=== PATIENT | male | born 1950 | race Caucasian/White ===

== ENCOUNTER 2019-06-09 16:27 | Inpatient (IN) ==
--- NOTE | 2019-06-09 18:09 | PROVIDER DOCUMENTATION ---
HPI-General Adult - General Chief Complaint: Abdominal Pain Stated Complaint: STOMACH-CANT EAT/SLEEP Time Seen by Provider: 06/09/19 17:51 Source: patient Allergies/Adverse Reactions: Patient Allergies Allergy/AdvReac Type Severity Reaction Status Date / Time No Known Allergies Allergy Verified 06/09/19 19:20 - History of Present Illness -Gen Adult Nature of Presenting Problems: 68yo male presents with CC of abdominal pain. The patient reports that this has been going on for about 4 weeks. The patient has seen his PCP for this and obtained some labs, but these are not back yet. The patient denies any fevers. The patient denies blood in vomit or diarrhea. The patient does report hx of dark stool 6wks ago. The patient denies any current bloody stool. The patient does radiate to the right flank. The patient reports last BM yesterday evening. The pt has not had abdominal surgery previously. No recent travel, hospitalization, surgery, or hx of blood clots. Pt is in no acute distress and is non-toxic appearing. Location of Pain/Injury: reports: abdomen Pain Radiation: reports: flank (R) Quality of Pain: reports: aching Severity: reports: mild Onset/Duration: reports: other (4 weeks) Timing: reports: still present Modifying Factors: improves with: eating (worsens), movement (improves) Associated Symptoms: reports: back/neck pain, constipation, heartburn, loss of appetite, nausea. denies: chest pain, vomiting Review of Systems - Adult - REVIEW OF SYSTEMS - ADULT Constitutional: reports: no symptoms reported. denies: fever Eyes: reports: no symptoms reported. denies: eye pain Ears, Nose, Mouth & Throat: reports: other (ear fullness) Cardiovascular: reports: no symptoms reported. denies: chest pain Respiratory: reports: shortness of breath Gastrointestinal: reports: abdominal pain, constipation, diarrhea, nausea, poor appetite. denies: hematemesis, rectal bleeding, vomiting Genitourinary: reports: dysuria Musculoskeletal: reports: back pain Integumentary: reports: no symptoms reported Neurological: reports: no symptoms reported. denies: headache/migraines Psychiatric: reports: no symptoms reported. denies: alcohol/drug dependence Endocrine: reports: no symptoms reported Hematologic/Lymphatic: reports: no symptoms reported, other (no bleeding) Allergic/Immunologic: reports: no symptoms reported, other (no swelling) Past History - Adult - PAST MEDICAL HISTORY-ADULT Review of Records: reports: Old Records Reviewed Cardiovascular: reports: denies history Respiratory: reports: denies history Gastrointestinal: reports: other (ulcers) Musculoskeletal: reports: chronic pain (neck) - PRIOR SURGERIES/PROCEDURES Surgical/Procedure History: reports: none (no abdominal) - FAMILY HISTORY Family History: other (CA) - SOCIAL HISTORY Smoking: non-smoker Substance Use: none/never Alcohol Use Frequency: never Physical Exam-General - PHYSICAL EXAM-ADULT Initial Vital Signs Reviewed: Yes - CONSTITUTIONAL General Appearance: appears well, alert, no apparent distress - EYES Eyes: negative: conjuctival exudate, photophobia, scleral icterus - HEAD, EARS, NOSE, MOUTH & THROAT HENMT: normocephalic/atraumatic, moist mucous membranes, other (white exudate noted on the tongue). negative: hearing deficit - NECK Neck: non-tender - RESPIRATORY Respiratory: lungs clear, normal breath sounds, no respiratory distress. negative: crackles, stridor, wheezing - CARDIOVASCULAR Cardiovascular: regular rate, rhythm, no edema - GASTROINTESTINAL (ABDOMEN) Abdominal Exam: soft, guarding, tenderness (RUQ and epigastric). negative: rebound - MUSCULOSKELETAL Back Exam: CVA tenderness (right) Extremity: non-tender, normal inspection (LE) - SKIN Integumentary: normal color, warm/dry - NEUROLOGIC Neurologic: grossly normal - PSYCHIATRIC Psych/Mental Status: normal mood/affect, normal thought content, normal thought process Progress - PLAN OF CARE/RESULTS Progress/Plan/Lab Results: Vital Signs - 8 hr 06/09/19 17:09 Temperature 98.0 F Pulse Rate 90 Respiratory Rate 20 Blood Pressure 135/93 O2 Sat by Pulse Oximetry 97 Result Diagrams: 06/09/19 19:31 06/09/19 19:31 - REASSESSMENT Reassessment #1 Status: other (Discussed case with the radiology team who reported metastatic cancer noted on the CT abd/pelvis. Discussed this with the family and will plan for admission with further work up. Discussed with the hospitalist team who has accepted the patient.) - EKG 1 Time of EKG reading by physician:: 19:53 EKG Read and Signed by:: Jass Guerrero EKG Interpretation (*Must complete 3 of following elements*): Normal Rate: 82 Rhythm: sinus Rector: normal QRS: normal [place] Interval: normal ST Wave: non-specific ST changes Comments: No injury current noted. Departure - Departure Date of Disposition Decision: 06/09/19 Time of Disposition Decision: 22:23 DIAGNOSIS: Metastatic cancer, Hypercalcemia Disposition: ADMITTED INPATIENT 09 Certified Medical Emergency: Emergent Condition: Serious Referrals and Follow-Ups: Rafy Velazquez MD [Primary Care Provider] - - Critical Care Note This patient required my direct & personal management of CC.: No Attestation - Physician/ GERALD Attestation Patient care was provided by Advanced Practice Provider:: No The physician spent face to face time with patient:: Yes Advanced Practice Provider documentation review:: Supervising physician onsite and consulted in the evaluation and care of this patient. The physician did have a face to face encounter with the patient. - HEART Score HEART Score: History: Slightly Suspicious HEART Score: ECG: Non-Specific Repolarization Disturbance/LBBB/PM HEART Score: Age: > or = 65 Years HEART Score: Risk Factors for Atherosclerotic Disease: 1 or 2 Risk Factors HEART Score: Troponin: < or = Normal Limit Total HEART Score:: 4
--- NOTE | 2019-06-09 18:27 | Diag Imaging Result Doc PS360 ---
CHEST-2 VIEWS - 06/09/2019 INDICATION: Shortness of breath COMPARISON: None FINDINGS: There is some linear atelectasis or scarring in the right lower lobe. No other infiltrates. Small calcified granuloma in the right upper lobe. Heart size and pulmonary vascular clarity is normal. No pneumothorax or pleural effusion. IMPRESSION: Moderate, linear atelectasis or scarring in the right lower lobe. Electronically signed by Gato Raman 06/09/2019 6:24 PM
[2019-06-09] MEDS ORDERED: G.I. COCKTAIL PO ONE (19:23)
[2019-06-09 19:45] LABS: URINE SOURCE CLEAN CATCH
[2019-06-09 19:51] LABS: BASO# 0.02 X1000 (0.0-0.2); BASO% 0.2 % (0.0-0.8); EOS# 0.06 X1000 (0.0-0.7); EOS% 0.7 % (0.0-10.0); HEMATOCRIT 43.8 % (42.0-52.0); HEMOGLOBIN 15.3 g/dL (14.0-18.0); IMM GRAN# 0.02 X1000 (0.0-0.04); IMM GRAN% 0.2 % (0.0-0.5); LYMPH# 1.45 X1000 (1.2-3.4); LYMPH% 16.1 % (20.5-51.1); MCHC 34.9 g/dL (33-37); MCV 88.8 FL (81-99); MONO# 0.97 X1000 (0.11-0.59); MONO% 10.8 % (1.7-9.3); MPV 10.3 FL (7.4-10.4); NEUT# 6.46 X1000 (1.4-6.5); PLT 220 X1000 (130-400); RBC 4.93 XMIL (4.7-6.1); RDW 12.3 % (11.5-14.5); WBC 8.98 X1000 (4.8-10.8)
[2019-06-09] MEDS ORDERED: ZOFRAN IV ONE (19:52)
--- NOTE | 2019-06-09 20:00 | EKG Report ---
Test Performed on : 06/09/2019 7:51:37 PM Test Reason : shortness of breath Blood Pressure : / mmHG Vent. Rate : 082 BPM Atrial Rate : 082 BPM P-R Int : 146 ms QRS Dur : 082 ms QT Int : 362 ms P-R-T Axes : 057 051 -15 degrees QTc Int : 422 ms Normal sinus rhythm. Nonspecific ST and T wave abnormality Abnormal ECG No previous ECGs available Unconfirmed Result
[2019-06-09 20:13] LABS: BILIRUBIN URINE NEGATIVE (NEGATIVE); BLOOD URINE NEGATIVE (NEGATIVE); COLOR YELLOW; GLUCOSE URINE NEGATIVE (NEGATIVE); KETONE URINE 20 mg/dL (NEGATIVE); LEUKOCYTES URINE NEGATIVE (NEGATIVE); NITRITE URINE NEGATIVE (NEGATIVE); PH URINE 5.5; PROTEIN URINE 30 mg/dL (NEGATIVE); SP GRAVITY URINE 1.024; TURBIDITY URINE CLEAR (CLEAR); UROBILINOGEN URINE NORMAL (NORMAL)
[2019-06-09 20:14] LABS: AGAP 13; ALB/GLOB RATIO 1.2; ALBUMIN 4.2 g/dL (3.5-5.0); ALKALINE PHOSPHATASE 105 U/L (32-122); AMYLASE 38 U/L (20-200); BUN 18 mg/dL (8-22); CALCIUM 12.1 mg/dL (8.8-10.2); CHLORIDE 96 mmol/L (98-107); COSMO 274; ESTIMATED GFR > 60; GLUCOSE 104 mg/dL (70-104); GOT 84 U/L (10-34); GPT 35 U/L (10-44); LIPASE 66 U/L (13-60); POTASSIUM 4.5 mmol/L (3.5-5.1); SODIUM 136 mmol/L (136-145); TCO2 27 mmol/L (25-35); TOTAL BILIRUBIN 1.02 mg/dL (0.20-1.00); TOTAL PROTEIN 7.7 g/dL (6.3-8.3)
[2019-06-09] MEDS ORDERED: NS 1,000 ML IV ONE ×2 (20:15→22:24)
[2019-06-09 20:27] LABS: UR EPITHELIAL CELLS <10 /HPF (<10); URINE BACTERIA NEGATIVE /HPF; URINE RBC <10 /HPF (<10); URINE WBC <10 /HPF (<10)
[2019-06-09 20:42] LABS: URINE CASTS NONE SEEN; URINE CRYSTALS NONE SEEN; URINE YEAST NONE SEEN
--- NOTE | 2019-06-09 22:00 | Diag Imaging Result Doc PS360 ---
CT ABD/PELVIS W/IV CONT ONLY - 06/09/2019 INDICATION: Abdominal Pain COMPARISON: None FINDINGS: There is a large heterogeneous mass in the right lobe of the liver. This is multifocal and measures about 13 x 8 cm. There is periportal adenopathy. There is an enhancing nodule of the right adrenal gland measuring 3.7 x 2.5 cm. Other abdominal organs appear normal. No bowel obstruction or inflammation. Moderate to severe diverticulosis of the colon. There is trace pelvic free fluid. Urinary bladder, prostate, and rectum. There are several scattered pulmonary nodules throughout the lungs. These are all small measuring less than a centimeter. Heart size is normal. There are moderate degenerative changes of the spine. No acute or suspicious bony lesion. IMPRESSION: Widely metastatic cancer of unknown origin. This report was discussed with Dr. Gooden on 06/09/2019 at 9:50 PM and was readback. This exam was performed using automated exposure control, adjustment of mA or kV according to patient size, and/or use of iterative reconstruction technique Electronically signed by Gato Raman 06/09/2019 9:58 PM
[2019-06-09] MEDS ORDERED: MORPHINE IV ONE (22:58)
[2019-06-09] MEDS ORDERED: SODIUM CHLORIDE 0.9% INJ ONE (23:09)
[2019-06-09] MEDS ORDERED: PROTONIX IV ONE (23:09)
[2019-06-10] MEDS ORDERED: MIACALCIN SUBQ SCH (00:15)
[2019-06-10] MEDS ORDERED: SODIUM CHLORIDE 0.9% INJ ONE (00:15)
[2019-06-10] MEDS ORDERED: ZOFRAN IV PRN (00:15)
--- NOTE | 2019-06-10 00:23 | HISTORY AND PHYSICAL ---
REASON FOR ADMISSION: A 3 to 4 week history of abdominal pain. HISTORY OF PRESENT ILLNESS: Mr. Edmundo Espino is a 68-year-old male with past medical history of hypertension, hyperlipidemia, who reports that for the last 3 to 4 weeks he has been having epigastric pain, occasionally radiating down to his umbilicus. Describes the pain as an achy and tight kind of pain. Says the pain is worse whenever he eats and earlier, about 3 4 weeks ago, he notes he had a few days of dark stools. He also reports a 28 pounds weight loss in the last 2 months. He says he is having nausea and has vomited a few times and his appetite has progressively declined . When he vomited, he denied seeing any blood or coffee grounds. He denies any abdominal distention. He also reports intermittent constipation. No hematochezia or melanotic stools. He denies any fever, chills, any generalized pruritus. No change in his urinary output, although he does admit he has a longstanding history of urinary hesitancy and occasional straining. No bleeding from any orifice. Over the last 1 week, he has sought care in outpatient clinics and has been given Carafate and Pepcid, which mildly relieves his symptoms. The patient denies any cardiorespiratory complaints, except for today when he said after moderate exertion he felt very tired but denied any chest pain with this. Also, reports last 3 days of lightheadedness and generalized weakness. REVIEW OF SYSTEMS: Twelve-system review was done, positive findings per HPI. No allergies, no rash. No focal neurological symptoms. ALLERGIES: No known allergies. HOME MEDICATIONS: Have not been reconciled but I did notice that he some bottles that contained Carafate, Pepcid, atenolol, aspirin and atorvastatin. FAMILY HISTORY: His sister from breast cancer. Dad has thyroid cancer. Heart disease is also positive in first-degree relatives. PAST MEDICAL HISTORY: Hypertension, hyperlipidemia. SOCIAL HISTORY: He stopped smoking 30 years ago. No alcohol, drug use. He is , lives with . SURGICAL HISTORY: He has only had back surgery. LABORATORY DATA: White count 9000, hemoglobin and hematocrit 15 and 43, platelets 220,000. BUN 18, creatinine 1.0. Calcium 12.1, total bilirubin is 1, lipase 66. Intact PTH and vitamin B levels are normal. Alkaline phosphatase is also normal. Urinalysis has 30 protein, ketones positive. Ionized calcium was 1.6. CT of the abdomen and pelvis shows a 13 x 8 cm multifocal mass in the right lobe of the liver. There is periportal adenopathy. There is also enhancement of a nodule on the right adrenal gland measuring 3.7 x 2.5 cm, with several scattered pulmonary nodules throughout the lungs. Chest film does show an acute cardiopulmonary process. PHYSICAL EXAMINATION: VITAL SIGNS: Blood pressure is 160/93, heart rate is 87, respiratory rate 17, temperature is 98 degrees. GENERAL: He is a middle-aged man who is alert and oriented to person and time with flat affect. Normal mood. He is oriented to person, place, time. HEENT: Head is normocephalic, atraumatic. Eyes: GEOVANNI, EOMI. He is anicteric, no pale. ENT is grossly normal. NECK: Supple. No JVD or carotid bruit. No thyromegaly. CHEST: Clear when auscultated. Good air entry both lung avila. CARDIOVASCULAR: First and sounds heart sounds heard. No gallops, rubs regular. ABDOMEN: Full is full, soft with tenderness confined exclusively to the left lower quadrant area, but no peritoneal signs. Bowel sounds are normal. Rectal sounds [id number]. EXTREMITIES: He has good distal pulse volumes, regular, symmetrical. No edema, clubbing or cyanosis. NEUROLOGIC: No gross focal deficits. SKIN: Intact, no breakdown or erythema. MUSCULOSKELETAL: Grossly normal. LYMPHATIC: Patient has no adenopathy in the cervical, supraclavicular and axillary chains. ASSESSMENT: Metastatic cancer of unknown primary, strongly suspect gastrointestinal or mostly intestinal primary. PLAN: 1. Will consult GI for endoscopic evaluation since the patient's symptoms are strongly suggestive of a gastrointestinal etiology, based on history of melena, epigastric pain affected by meals and localized left lower quadrant tenderness. Tumor markers ordered. Consult Oncology to see patient. The patient has not had a colonoscopy done before, but if there are no findings on endoscopy, alternatively, patient can have a liver biopsy. 2. Hypercalcemia, probably secondary to malignancy. Order a PTH related peptide, which I suspect may be playing a role in the pathogenesis of hypercalcemia here. We will start him on aggressive crystalloid resuscitation to encourage excretion of calcium. Put patient on calcitonin. We will defer to oncologist as to their choice of bisphosphonates, if needed. 3. Hypertension. Resume patient's home medications once available. cc: MD Rafy Dupont MD MTDD
[2019-06-10] MEDS: LOVENOX SUBQ SCH (01:01)
[2019-06-10] MEDS: NS 1,000 ML IV SCH ×3 (01:02→17:45)
[2019-06-10] MEDS: MORPHINE IV PRN ×4 (01:03→20:09)
[2019-06-10 07:43] LABS: BASO# 0.01 X1000 (0.0-0.2); BASO% 0.1 % (0.0-0.8); EOS# 0.05 X1000 (0.0-0.7); EOS% 0.7 % (0.0-10.0); HEMATOCRIT 39.8 % (42.0-52.0); HEMOGLOBIN 13.6 g/dL (14.0-18.0); LYMPH# 1.04 X1000 (1.2-3.4); LYMPH% 15.4 % (20.5-51.1); MCH 30.8 PG (27-31); MCHC 34.2 g/dL (33-37); MCV 90.2 FL (81-99); MONO# 0.84 X1000 (0.11-0.59); MONO% 12.5 % (1.7-9.3); MPV 10.3 FL (7.4-10.4); NEUT% 71.3 % (42.2-75.2); PLT 186 X1000 (130-400); RBC 4.41 XMIL (4.7-6.1); RDW 12.2 % (11.5-14.5); WBC 6.74 X1000 (4.8-10.8)
[2019-06-10 08:15] LABS: AGAP 11; BUN 11 mg/dL (8-22); CALCIUM 9.5 mg/dL (8.8-10.2); CHLORIDE 103 mmol/L (98-107); COSMO 272; CREATININE 0.6 mg/dL (0.7-1.2); ESTIMATED GFR > 60; GLUCOSE 108 mg/dL (70-104); MAGNESIUM 1.6 mg/dL (1.5-2.7); POTASSIUM 4.2 mmol/L (3.5-5.1); SODIUM 136 mmol/L (136-145); TCO2 22 mmol/L (25-35)
[2019-06-10] MEDS: SODIUM CHLORIDE 0.9% INJ PRN (08:58)
[2019-06-10] MEDS: PROTONIX IV SCH (08:58)
--- NOTE | 2019-06-10 11:00 | GASTROENTEROLOGY CONSULTATION ---
DATE: 06/10/2019 REASON FOR CONSULTATION: Metastatic disease, rule out GI primary. HISTORY OF PRESENT ILLNESS: Mr. Edmundo Espino is a 68-year-old man with past medical history of hypertension, [id number] diabetes, cervical neck disease and hyperlipidemia who presents with 3 weeks of epigastric abdominal pain described as gnawing and up to 10/10. The patient reports associated decreased appetite, nonbloody, nonbilious emesis and watery diarrhea. He does describe having an episode about 6 weeks ago of having black or dark having dark stools. He has lost about 30 pounds over the last 2 months. He denies any fevers, chills, sweats, lumps or bumps, jaundice, history of liver disease. He is a remote smoker. Drinks alcohol rarely. No drug use. He is , lives with his . He denies any hematuria or gross hematochezia. No prior EGD or colonoscopy. REVIEW OF SYSTEMS: As per HPI, otherwise 12 point review of systems is negative. PAST MEDICAL HISTORY: As per HPI. PAST SURGICAL HISTORY: He has had back surgery in the past. HOME MEDICATIONS: Include metformin, gabapentin, hydrocodone, atorvastatin, Nexium, famotidine, tadalafil, atenolol. ALLERGIES: No known drug allergies. FAMILY HISTORY: No family history of GI malignancy. His sister has non- Hodgkin's lymphoma. Sister of breast cancer. Father had cancer behind his nose and lung cancer. SOCIAL HISTORY: Remote smoker. Rare alcohol. No drug use. He is , lives with his . PHYSICAL EXAMINATION: Vital Signs: Temperature 98.3 degrees, heart rate 82, respiratory rate 16, blood pressure 132/66, O2 saturation 96% on room air. General: Patient is awake, alert, oriented, no acute distress, pleasant. HEENT: Sclerae anicteric. Moist mucous membranes. Extraocular motor intact. Neck: Supple. No JVD or lymphadenopathy. Cardiac: Regular rate and rhythm. No murmurs, rubs, or gallops. Lungs: Clear to auscultation. No wheezes, rales or rhonchi. Abdomen: Soft, nontender, nondistended. Normoactive bowel sounds. No rebound or guarding. Extremities: No clubbing, cyanosis, or edema. Neurologic: Nonfocal. LABS: White count of 6.7, hemoglobin 13.6 from 15.3 yesterday, platelets of 186,000. Sodium 136, potassium 4.2, chloride of 103, bicarb 22, BUN of 11, creatinine 0.6, glucose of 108, calcium of 9.5 from 12.1 yesterday, phos of 2.3, magnesium 1.6, CEA of 2.5 lipase 66. UA shows protein and ketones. Total bilirubin of 1.02. AST 84, ALT 35, alk phos 105, albumin 4.2, total protein 7.7. IMAGING: Chest x-ray, moderate linear atelectasis or scarring in the right lower lobe. Small calcified granuloma in the right upper lobes. No pneumothorax or effusions. CT of the abdomen and pelvis with IV contrast only shows a large heterogeneous mass in the right lobe of the liver. This is multifocal, measures 13 x 8 cm. There is periportal adenopathy. There is enhancing nodule in the right adrenal gland measuring 3.7 x 2.5. Other abdominal organs appear normal. No bowel obstruction or inflammation. Moderate to severe diverticulosis. Trace fluid in the pelvis. There are scattered pulmonary nodules throughout the lungs. These are small appearing less than a cm. There are moderate degenerative changes of the spine. No acute or suspicious bony lesions. ASSESSMENT AND PLAN: Mr. Edmundo Espino is a 68-year-old gentleman with history of hypertension, hyperlipidemia, noninsulin dependent diabetes, who presents with 3 weeks of nausea, vomiting, diarrhea, and abdominal pain found to have multifocal lesions in the liver as well as small pulmonary nodules and adrenal nodule concerning for metastatic disease. He has had significant weight loss. No prior EGD or colonoscopy. He does take medications for presumably acid reflux. His labs are notable for hypercalcemia concerning for hypercalcemia of malignancy. Normal CEA. Minimally elevated lipase of unclear significance. AST of 84, likely related to infiltrative disease. # Metastatic disease; unknown primary # Abdominal pain # N/V # Diarrhea # GERD # Hypercalcemia of malignancy # Abnormal LFTs # Abnormal weight loss PLAN: We will put him on clear liquid diet tomorrow and prep him for diagnostic colonoscopy and endoscopy on Wednesday. We discussed the risks and benefits. If endoscopic evaluation is negative he will likely need percutaneous liver biopsy of the large liver mass. Hematology is following. Appreciate recommendations. The patient continues to have diarrhea, low threshold to send stool studies for C diff, culture and ova and parasites. Continue IV fluid resuscitation in the setting of hypercalcemia. He is on a PPI IV once daily, which can be transitioned to p.o., antiemetics p.r.n. We will hold PassionTagx tomorrow. Thank you for this consult. We will follow with you. Please call with any questions or concerns. MTDD
--- NOTE | 2019-06-10 11:32 | PROGRESS NOTE ---
DATE: 06/10/2019 SUBJECTIVE: The patient seems to be stable. He is complaining of some abdominal discomfort. Family members at the bedside; all their questions were answered. OBJECTIVE: Vital Signs: Temperature 98.3 degrees, pulse 82, respiratory rate 16, blood pressure 132/66, oxygen saturation 96 on room air. HEENT: Head normocephalic, no trauma. PERRLA. Neck: Supple. No JVD. No masses. Central trachea. Chest: Clear to auscultation. No wheezing, no rales. Abdomen: Soft. Some tenderness to palpation at the level of the left lower quadrant and left upper discomfort as well. No signs of peritoneal irritation. Extremities: No edema, no clubbing, no cyanosis. Neurological examination: The patient is awake, alert, and oriented x3. No focal deficits. LABORATORY: WBC 6.7, hemoglobin 13.6, hematocrit 39.8, platelets 186. Sodium 136, potassium 4.2, chloride 103, bicarbonate 22. BUN 11, creatinine 0.6, glucose 108, calcium 9.5, phosphorus 2.3, magnesium 1.6. ASSESSMENT AND PLAN: 1. Metastatic cancer, unknown origin. This patient had a CT scan that showed a basically large metastatic disease. We have consulted Hematology/Oncology Department, as well as Gastroenterology Department to rule out colon cancer or GI tract cancer. The patient seems to be feeling better. We will continue to monitor. He has been losing a lot of weight, around 15 pounds in the past month unintentionally. 2. History of melena and epigastric dysfunction with fullness. Gastroenterology Department has been consulted. 3. Hypercalcemia, resolved with intravenous fluids. I will decrease the dose of the rate to 100, and I will start feeding this patient. 4. Hypertension. For now we will monitor. Blood pressure seems to be stable. Pending Hematology Oncology evaluation, as well as Gastroenterology evaluation. cc: Jim Bobo MD
[2019-06-11] MEDS: NS 1,000 ML IV SCH ×4 (00:53→23:51)
[2019-06-11] MEDS: MORPHINE IV PRN ×5 (02:22→22:16)
--- NOTE | 2019-06-11 07:57 | PROGRESS NOTE ---
DATE: 06/11/2019 SUBJECTIVE: The patient is resting comfortably in bed. Not in any obvious distress. OBJECTIVE: Vital signs: Temperature is 98.3 degrees, pulse 87, respiratory rate 16, blood pressure 154/80, oxygen saturation 96%. HEENT: He is atraumatic, normocephalic. Cardiovascular: S1, S2. Respiratory system: Has evidence of good air entry bilaterally. Abdomen: Soft, nontender. No masses felt. Extremities: No evidence of edema. Central nervous system: No obvious focal deficits noted. LABS: None. ASSESSMENT AND PLAN: 1. Metastatic cancer of unknown origin. CT scan of the abdomen and pelvis done with IV contrast shows evidence of widely metastatic cancer of unknown origin. The patient is noted to have a large heterogeneous mass in the right lobe of the liver, and this is multifocal. There is also evidence of periportal adenopathy. There is an enhancing nodule in the right adrenal gland measuring about 3.7 x 2.7 cm. GI team on board for GI endoscopic studies. We will obtain tumor markers including alpha fetoprotein level, carcinoma embryonic antigen level and also CA-19-9 level. 2. Hypercalcemia, most likely secondary to malignancy. Maintain patient on intravenous fluids. Follow up on calcium level. 3. Hypertension. Optimize blood pressure control. 4. Deep vein thrombosis prophylaxis. Lovenox. 5. Gastrointestinal prophylaxis. Proton pump inhibitor. cc: Darius James MD
[2019-06-11] MEDS: SODIUM CHLORIDE 0.9% INJ PRN (09:08)
[2019-06-11] MEDS: LOVENOX SUBQ SCH (09:09)
[2019-06-11] MEDS: PROTONIX IV SCH (09:09)
[2019-06-11] MEDS ORDERED: GOLYTELY PO ONE (16:00)
--- NOTE | 2019-06-11 16:30 | PROVIDER PROGRESS NOTE ---
Progress Note S: No acute overnight events. Patient reports nausea without vomiting. Abdominal pain controlled. O: Last Vital Signs Temp 97.9 F 06/11/19 14:00 Pulse 92 H 06/11/19 14:00 Resp 18 06/11/19 14:00 BP 156/80 06/11/19 14:00 Pulse Ox 97 06/11/19 14:00 Height 5 ft 11 in Weight 190 lb 8 oz GEN: awake, alert NAD HEENT: anicteric, MMM NECK: supple, no LAD CV: RRR, no murmurs PULM: CTAB, no wheezing ABD: soft NT/ND, NABS EXT: no cce NEURO: nonfocal LABS: No AM labs A/P: Mr. Edmundo Espino is a 68-year-old gentleman with history of hypertension, hyperlipidemia, NIDDM2 who presented with N/V/D and weight loss found to have metastatic disease. GI consulted to evaluate for GI primary. He is on clear liquids today. Will plan for diagnostic EGD and colonoscopy tomorrow. Prep with 4L golytely. NPO after MN. # Multifocal liver lesions/pulmonary nodules/adrenal nodule # Nausea/vomiting: controlled # Abnormal weight loss # Hypercalcemia # Abnormal LFTs Will follow with you. Please call with questions.
[2019-06-12] MEDS: MORPHINE IV PRN (02:20)
[2019-06-12] MEDS: NS 1,000 ML IV SCH ×2 (06:04→10:40)
[2019-06-12 07:16] LABS: BASO# 0.01 X1000 (0.0-0.2); BASO% 0.1 % (0.0-0.8); EOS# 0.12 X1000 (0.0-0.7); EOS% 1.7 % (0.0-10.0); HEMATOCRIT 38.6 % (42.0-52.0); HEMOGLOBIN 13.5 g/dL (14.0-18.0); LYMPH# 1.38 X1000 (1.2-3.4); LYMPH% 19.7 % (20.5-51.1); MCH 31.2 PG (27-31); MCV 89.1 FL (81-99); MONO# 0.78 X1000 (0.11-0.59); MONO% 11.1 % (1.7-9.3); MPV 10.3 FL (7.4-10.4); NEUT# 4.71 X1000 (1.4-6.5); NEUT% 67.4 % (42.2-75.2); PLT 180 X1000 (130-400); RBC 4.33 XMIL (4.7-6.1); RDW 12.2 % (11.5-14.5)
[2019-06-12 07:35] LABS: AGAP 13; ALBUMIN 3.1 g/dL (3.5-5.0); ALKALINE PHOSPHATASE 83 U/L (32-122); BUN 3 mg/dL (8-22); CALCIUM 9.1 mg/dL (8.8-10.2); CHLORIDE 101 mmol/L (98-107); COSMO 270; CREATININE 0.5 mg/dL (0.7-1.2); ESTIMATED GFR > 60; GLUCOSE 96 mg/dL (70-104); GOT 86 U/L (10-34); GPT 28 U/L (10-44); IRON SATURATION 45 %; POTASSIUM 3.7 mmol/L (3.5-5.1); SODIUM 137 mmol/L (136-145); TCO2 23 mmol/L (25-35); TIBC 150 ug/dL; TOTAL BILIRUBIN 0.62 mg/dL (0.20-1.00); TOTAL IRON 67 ug/dL (53-167); TOTAL PROTEIN 6.3 g/dL (6.3-8.3); UNBOUND IRON 83 ug/dL (112-346)
[2019-06-12] MEDS ORDERED: XYLOCAINE-MPF 2% ONE (08:14)
[2019-06-12] MEDS ORDERED: DIPRIVAN 1% ONE (08:14)
[2019-06-12 08:16] LABS: FERRITIN 1694 ng/mL (30-400)
--- NOTE | 2019-06-12 09:16 | ENDOSCOPY OPERATIVE NOTE ---
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 PROCEDURE PERFORMED: EGD, diagnostic MEDICATIONS: Per Anesthesia ESTIMATED BLOOD LOSS: None CONSENT: The patient understands the risks and benefits of the procedure and understands that these r isks include, but are not limited to: sedation, allergic reaction, infection, perforation and/or bleeding. Alternative means of evaluation and treatment include, among others: physical exam, x-rays, and/or surgical intervention. The patient elects to proceed with this endoscopic procedure. DESCRIPTION OF PROCEDURE: During pre-op preparation period all mechanical and medical equipment was c hecked for proper function. Hand hygiene and appropriate measures for infection prevention was taken. After the risks, benefits and alternatives of the procedure were thoroughly explained, Informed consent was verified, confirmed and timeout was successfully executed by the treatment team. The patient was anesthetized with topical anesthesia and the [id number]-s13 ([id number]) endoscope was introduced through the mouth and advanced to the second portion of the duoden um. Retroflexion was performed in the stomach and revealed no abnormalities. The gastroscope was then slowly withdraw n and removed. The patient's toleration of the procedure was excellent. ESOPHAGUS: The z-line was noted at 35cm from the incisors. The z-line appeared irregular. STOMACH: The stomach was normal. DUODENUM: The duodenum was normal. ADVERSE EVENTS: There were no complications. IMPRESSIONS: 1. The z-line was noted at 35cm from the incisors 2. The stomach was normal 3. The duodenum was normal RECOMMENDATIONS: Continue to colonoscopy procedure REPEAT EXAM: Edmundo Gonzalez MD eSigned: Edmundo Gonzalez MD 06/12/2019 9:15 AM CC: CPT CODES: 15640 Upper gastrointestinal endoscopy including esophagus, stomach, and either the du odenum and/or jejunum as appropriate; diagnostic, with or without collection of specimen(s) by brushing or washing (separate procedure) ICD CODES: 783.21 Loss of weight The ICD and CPT codes recommended by this software are interpretations from the data that the [facility] staff has captured with the software. The verification of the translation of this report to the ICD and CPT co alejandra and modifiers is the sole responsibility of the health care institution and practicing physician where this report was generated. [employer] will not be held responsible for the validity of the ICD and CPT codes i ncluded on this report. AMA assumes no liability for data contained or not contained herein. CPT is a registered tra demark of the [employer]. PATIENT NAME: Edmundo Espino MR#: [id number]
--- NOTE | 2019-06-12 09:20 | ENDOSCOPY OPERATIVE NOTE ---
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 PROCEDURE PERFORMED: Colonoscopy, diagnostic MEDICATIONS: Per Anesthesia PREP TYPE: GoLytely
[2019-06-12] MEDS: PROTONIX IV SCH (10:41)
--- NOTE | 2019-06-12 14:14 | Diag Imaging Result Doc PS360 ---
EXAM: CT THORAX W/CONTRAST 06/12/2019 HISTORY: liver mass, eval for primary lesion TECHNIQUE: This exam was performed using automated exposure control, adjustment of mA or kV according to patient size, and/or use of iterative reconstruction technique. COMMENT: There is a pleural effusion on the right. There is ascites in the subphrenic space extending into the right paracolic gutter. Heterogeneously enhancing mass is seen throughout the dome of the right hepatic lobe extending posteriorly and caudally. There is apparent tumor thrombus in the right division of the portal vein as well as in the middle hepatic vein and inferior vena cava. This extends into the right atrium. The aorta is not distended. There is no evidence of dissection. There are celiac nodes measuring up to 2.6 cm in diameter. There is a retrocaval node on image 128 measuring almost 2 cm in long axis. There is enlargement of the right adrenal gland. There are calcified subcarinal and hilar nodes. There is bullous emphysema particularly in the apices. There are noncalcified pulmonary nodules present in the apices bilaterally numerous small nodules are distributed throughout both lungs with nodules in the left upper lobe measuring over 11 mm in size and a right middle lobe nodule on image 79 measuring over 12 mm. There is atelectasis or pneumonia in the right lower lobe. There is a nodule in the left lower lobe on image 95 measuring over 10 mm. The regional skeleton appears to be intact. IMPRESSION: Hepatic mass with tumor thrombi in the portal vein and inferior vena cava, the latter extending into the right atrium. Extensive pulmonary metastases. Right pleural effusion and ascites. Right adrenal metastasis. Electronically signed by Melvin Broderick 06/12/2019 2:12 PM
--- NOTE | 2019-06-12 14:58 | Diag Imaging Result Doc PS360 ---
EXAM: BONE SCAN, TOTAL BODY INDICATION: metastatic cancer TECHNIQUE: 29 mCi of technetium 99 MDP was administered intravenously and images of the whole body were obtained in usual fashion after administration. COMPARISON: None. FINDINGS: There is mild degenerative uptake at the medial compartments of both knees and at both shoulders. No other abnormal increased uptake or focal photopenia is identified to indicate bony metastatic disease on this study. There is normal soft tissue uptake and normal excretion of radiotracer by the system. IMPRESSION: Mild degenerative uptake at the knees and shoulders. No abnormal uptake identified that would suggest bony metastatic disease. Electronically signed by Jared Rios 06/12/2019 2:56 PM
--- NOTE | 2019-06-12 16:18 | Diag Imaging Result Doc PS360 ---
EXAM: CT GUIDED BX LIVER 06/12/2019 HISTORY: mass TECHNIQUE: CT-guided biopsy of the right hepatic lobe COMMENT: The risk and benefits of the procedure including possibility of bleeding, infection, or reaction to lidocaine were discussed with the patient and he agreed to the procedure. Following sterile preparation the skin laterally and administration 1% lidocaine to the skin and deeper soft tissues and 18-gauge coaxial Temno core biopsy needle was employed to obtain four cores from the lesion in the posterior right hepatic lobe. There are no immediate complications and the patient tolerated the procedure well. IMPRESSION: Successful CT-guided biopsy. Electronically signed by Melvin Broderick 06/12/2019 4:15 PM
[2019-06-12] MEDS: TYLENOL PO PRN (16:33)
--- NOTE | 2019-06-12 17:44 | PROGRESS NOTE ---
DATE: 06/12/2019 INTERVAL HISTORY: The patient with no further nausea, vomiting, or diarrhea. No new complaints. No acute events overnight. He does say that the weakness that brought him and that was one of the main reasons he came in is significantly improved. The patient went down for chest CT earlier, and they were unexpectedly able to get his CT-guided biopsy done. CT of the chest showed right pleural effusion and noncalcified pulmonary nodules in the apices bilaterally with numerous small nodes distributed through both lungs, and nodules in left upper lobe measuring approximately 11 mm, showed likely atelectasis in right lower lobe. Confirmed large mass in right hepatic lobe. Also showed likely tumor thrombus in the portal vein, as well as the middle hepatic vein, and inferior vena cava extending up to the right atrium. The patient underwent endoscopy earlier this morning without issues. Diverticulosis and a few hyperplastic polyps were found, as well as some small hemorrhoids, but no significant pathology on EGD or colonoscopy. REVIEW OF SYSTEMS: Twelve-point review of systems negative except as per interval history. LABS: WBC 7, hemoglobin 13.5, hematocrit 38.6, platelets 180,000. Sodium 137, potassium 3.7, BUN 3, creatinine 0.5, iron 67, TIBC 150, ferritin 1694, bilirubin 0.62, AST 86, ALT 28, alkaline phosphatase 83, folate 5.8, B12 of 603. Urinalysis unremarkable. VITAL SIGNS: T-max 98.8 degrees, pulse 72, respirations 16, blood pressure 132/62, and O2 saturation 100% on room air. OBJECTIVE: General: On physical exam, in no acute distress. Vital Signs: As above. HEENT: Normocephalic, atraumatic. Moist mucous membranes. No cervical adenopathy. Cardiovascular: Regular rate and rhythm. No murmurs noted. Pulmonary: Clear to auscultation bilaterally. No wheezing, rales, or rhonchi. Abdomen: Soft, nontender, nondistended. Possibly slightly enlarged liver. Bowel sounds positive. Extremities: Peripheral pulses intact. No clubbing or cyanosis. Neurologic: Cranial nerves grossly intact. No focal deficits identified. Psychiatric: Normal mood and affect. Awake, alert, oriented x3. Skin: No new appearing rashes or lesions noted. ASSESSMENT AND PLAN: 1. Likely metastatic cancer to the liver with unknown primary, right adrenal mass, likely lung metastases as well. The patient admitted with large liver mass, which is multifocal and favored to be metastatic cancer of some description. Endoscopy performed today did not show gastrointestinal primary. Primary malignancy remains occult at this time, but we were able to get biopsy of one of those masses today, which will hopefully help with diagnosis. 2. Likely cancer provoked clot of the portal vein and superior vena cava. We will put patient on Lovenox 1 mg/kg b.i.d. and monitor closely for signs of pulmonary embolism. 3. Hypercalcemia, likely related to cancer. It has improved with fluids, however. Essentially normalized at this point. Continue to monitor. 4. Hypertension. Reasonable control on current therapy. 5. Hyperlipidemia. Holding home statin currently. 6. Gastroesophageal reflux disease. Continue proton pump inhibitor. 7. Nausea, vomiting, and diarrhea, currently resolved. Once he is done with procedures, we will let him eat and how he does. 8. Disposition. With biopsy obtained, I would normally say he could likely go home, but given this massive inferior vena cava, probably we will likely need to watch him at least overnight and figure out what blood thinner he will go home on. [facility]
--- NOTE | 2019-06-12 18:30 | HEMO/ONC CONSULTATION ---
DATE: 06/12/2019 CONSULTATION REQUESTED BY: The patient is seen in consultation at the request of Dr. Rachel. REASON FOR CONSULTATION: Metastatic cancer and hypercalcemia. HISTORY OF PRESENT ILLNESS: Mr. Espino presented to the emergency room on 06/09/2019 with worsening epigastric pain that had started approximately 4 to 6 weeks prior to his admission. His family had noted almost a 30 pound weight loss in the last few months. He had had decreased appetite, nausea and occasional vomiting. He described the pain as epigastric, worse with eating and relieved with fasting. On admission, he was found to have a multifocal right lobe of the liver mass, as well as periportal adenopathy and a right adrenal mass. He has already gone for EGD and colonoscopy this morning and is awaiting further scans later today. PAST MEDICAL HISTORY: Significant for hypertension, hyperlipidemia. PAST SURGICAL HISTORY: Back surgery. ALLERGIES: No known drug allergies. MEDICATIONS: Reviewed per the chart. FAMILY MEDICAL HISTORY: Sister had breast cancer, heart disease notable in the family. Dad had thyroid cancer. REVIEW OF SYSTEMS: Pertinent positives and negatives as per HPI. All other review of systems negative. PHYSICAL EXAMINATION: Vital Signs: Temperature 98.8 degrees, pulse 88, respiratory rate 18, blood pressure 150/76, and O2 saturation 93% on room air. General: This is a chronically ill- appearing man in no acute distress. He is accompanied by multiple family members at the bedside at the time of consultation. HEENT: Eyes, sclerae anicteric. Cardiovascular: Regular rate and rhythm. Normal S1, S2. No murmurs, rubs, or gallops. Pulmonary: Lungs clear to auscultation bilaterally without wheezes, rales, or rhonchi. Gastrointestinal: Abdomen is soft, nontender, nondistended with normoactive bowel sounds. One bruit is noted in the right lower quadrant, presumably from a Lovenox injection. No palpable masses or rebound or guarding. Extremities: No clubbing, cyanosis, or edema. He has 2+ pulses x4. Neurologic: Alert and orient x3. No focal deficits. Gait not assessed as the patient is in the hospital bed at time of consultation. LABS: White count 7, hemoglobin 13.5, platelet count 180,000. Folic acid 5.8, iron saturation 45%. Calcium 12.1 on admission, down to 9.5 after treatment. Creatinine 0.5 after hydration. AST 116,720. CEA 2.5, CA 19-9 normal at 17. PSA 0.57. B12 of 603, folic acid 5.8. IMAGING: Chest x-ray showed moderate linear atelectasis or scarring in the right lower lobe. CT abdomen and pelvis on 06/09/2019 shows a large heterogenous mass in the right lobe of the liver, multifocal, measuring 13 x 8 cm with periportal adenopathy and an enhancing nodule the right adrenal gland measuring 3.7 x 2.5 cm with scattered pulmonary nodules throughout the lungs measuring less than 1 cm. A bone scan showed mild degenerative uptake at the knees and shoulders, but no evidence of bony metastatic disease. CT of the chest is pending. ASSESSMENT AND PLAN: 1. Metastatic malignancy of unknown primary: Discussion the natural history, prognosis, and treatment of metastatic malignancy of liver versus other primary. He will have a liver biopsy performed hopefully tomorrow for tissue diagnosis. He is status post endoscopy, and I will follow up on those results as well. 2. Elevated AFP: Highly suspicious for hepatocellular carcinoma. Biopsy as above. Palliative treatment as indicated. 3. Hypercalcemia: This has an overall poor prognosis. He has responded appropriately to treatment with fluids. Continue to monitor for any relapse. 4. Pain: Continue morphine as needed. 5. Folic acid deficiency: I will start him on folic acid repletion at this time. cc: MD Adama Lockett MD
[2019-06-12] MEDS: LOVENOX SUBQ SCH (18:53)
[2019-06-13] MEDS: NS 1,000 ML IV SCH ×3 (01:42→18:11)
[2019-06-13] MEDS: LOVENOX SUBQ SCH ×2 (06:23→17:36)
[2019-06-13 07:20] LABS: BASO# 0.02 X1000 (0.0-0.2); BASO% 0.3 % (0.0-0.8); EOS# 0.09 X1000 (0.0-0.7); EOS% 1.2 % (0.0-10.0); HEMATOCRIT 38.9 % (42.0-52.0); HEMOGLOBIN 13.4 g/dL (14.0-18.0); IMM GRAN# 0.03 X1000 (0.0-0.04); IMM GRAN% 0.4 % (0.0-0.5); LYMPH# 1.21 X1000 (1.2-3.4); LYMPH% 15.7 % (20.5-51.1); MCH 30.8 PG (27-31); MCHC 34.4 g/dL (33-37); MCV 89.4 FL (81-99); MONO# 1.08 X1000 (0.11-0.59); MPV 10.3 FL (7.4-10.4); NEUT# 5.27 X1000 (1.4-6.5); NEUT% 68.4 % (42.2-75.2); PLT 197 X1000 (130-400); RBC 4.35 XMIL (4.7-6.1); RDW 12.2 % (11.5-14.5)
[2019-06-13] MEDS: TYLENOL PO PRN (07:35)
[2019-06-13 07:46] LABS: AGAP 14; BUN 3 mg/dL (8-22); CALCIUM 9.5 mg/dL (8.8-10.2); CHLORIDE 98 mmol/L (98-107); COSMO 265; CREATININE 0.6 mg/dL (0.7-1.2); ESTIMATED GFR > 60; GLUCOSE 103 mg/dL (70-104); POTASSIUM 3.5 mmol/L (3.5-5.1); SODIUM 134 mmol/L (136-145); TCO2 22 mmol/L (25-35)
[2019-06-13] MEDS: PROTONIX IV SCH (09:13)
[2019-06-13] MEDS: SODIUM CHLORIDE 0.9% INJ PRN (09:13)
[2019-06-13] MEDS: FOLIC ACID PO SCH (09:13)
--- NOTE | 2019-06-13 16:30 | PROGRESS NOTE ---
DATE: 06/13/2019 INTERVAL HISTORY: The patient is doing well status post liver biopsy yesterday. No dyspnea, chest pain, hemoptysis, or other clear sign of PE. No new complaints. No acute events overnight. REVIEW OF SYSTEMS: Twelve point review of systems negative except as per interval history. LABORATORY DATA: WBC 7.7, hemoglobin 13.4, hematocrit 38.9, platelets 197,000. Sodium 134, BUN 3, creatinine 0.6. VITAL SIGNS: T-max 99.3 degrees, pulse 85, respirations 17, blood pressure 170/79. O2 saturation 96% on room air. PHYSICAL EXAMINATION: General: No acute distress. Vitals: As above. HEENT: Normocephalic, atraumatic. Moist mucous membranes. No cervical adenopathy. Cardiovascular: Regular rate and rhythm. No murmurs noted. Pulmonary: Clear to auscultation bilaterally. No wheezing, rales, or rhonchi. Abdomen: Soft, nontender, nondistended. Minimally enlarged liver. Bowel sounds positive. Extremities: Peripheral pulses intact. No clubbing or cyanosis. Neurologic: Cranial nerves grossly intact. No focal deficits. Psychiatric: Normal mood and affect. Awake, alert, oriented x3. Skin: No new rashes or lesions noted. Not jaundiced. ASSESSMENT AND PLAN: 1. Likely metastatic cancer to the liver with uncertain primary, right adrenal mass, likely lung metastases as well. The patient with large liver masses, multifocal, and favored to be metastatic cancer, also with right adrenal mass and numerous small lesions in the lungs. Endoscopy did not show gastrointestinal primary. Liver biopsy obtained yesterday which will hopefully give us some answers. Cholangiocarcinoma is likely. Further testing recommendations as per Oncology. 2. Likely cancer provoked portal vein thrombosis and inferior vena cava deep venous thrombosis. Patient on Lovenox 1 mg/kg b.i.d. currently. Continue to monitor closely for least 1 more day for signs of pulmonary embolus. The inferior vena cava clot is pretty extensive and extends almost all the way to the heart. Discussed with patient that given his underlying cancer diagnosis, Lovenox would be the preferred agent, but if he strongly prefer not to do that, then Eliquis or Xarelto could be considered. 3. Hypercalcemia likely related to cancer, now essentially resolved. 4. Hypertension, fairly elevated. Restarting patient's home atenolol and will consider Norvasc if blood pressure remains significantly elevated. 5. Hyperlipidemia. Holding home statin currently given liver pathology. 6. Gastroesophageal reflux disease. Continue proton pump inhibitors. 7. Nausea vomiting diarrhea, resolved. The patient now done with procedure so we will put him on a regular diet and see how he does. DISPOSITION: Biopsy now obtained, watch on Lovenox at least 1 more day, given extensive inferior vena cava thrombosis. If he continues to do well and Oncology does not have any other tests that need to be performed inpatient then can likely be discharged tomorrow.
[2019-06-13] MEDS: TENORMIN PO SCH (16:33)
--- NOTE | 2019-06-13 17:16 | HEMO/ONC PROGRESS NOTE ---
DATE: 06/13/2019 CHIEF COMPLAINT: "had that biopsy." HISTORY OF PRESENT ILLNESS: Mr. Espino is status post liver biopsy this morning. He otherwise feels well. He has been held overnight for monitoring on anticoagulation. He denies any fevers, chills, or bleeding. REVIEW OF SYSTEMS: A complete review of systems is negative except as per HPI. PHYSICAL EXAMINATION: Temperature 97.9 degrees, pulse 85, respiratory rate 17, blood pressure 170/79, and O2 saturation 96% on room air. LABS: White count 7.7, hemoglobin 13.4, platelet count 197,000. Creatinine 0.6. IMAGING: Chest CT on 06/12/2019 shows tumor thrombus in the portal vein, IVC, and right atrium with extensive pulmonary mets, right pleural effusion, ascites, right adrenal mets, and large liver mass. AFP is 116,720. ASSESSMENT AND PLAN: 1. Liver mass: Suspected hepatocellular carcinoma: This is unusual in a patient without known underlying cirrhosis, alcoholism, or hepatitis. I will add a hepatitis panel to his labs at this time if not already done. I will await biopsy results. We will see him back in the clinic for a followup and further treatment planning. We discussed the role of immunotherapy and TKI in the treatment of hepatocellular carcinoma. We discussed palliative intent and treatment of metastatic malignancy. 2. Hypercalcemia: His calcium level is much improved at 9.5 today. Continue current management. Reassess as an outpatient. 3. Folic acid deficiency: I have started him on normal folic acid supplementation. Follow up as an outpatient. 4. Tumor thrombus: Anticoagulation is reasonable. I would place him on Xarelto as an outpatient at 20 mg daily dosing. We discussed that some of this thrombus is likely tumor. We discussed risks of embolism. We will treat him with systemic therapy as above. I would hold off on oral anticoagulation until 24 hours post biopsy once his hemoglobin is stable. cc: MD Adama Lockett MD MTDD
[2019-06-13] MEDS: MORPHINE IV PRN (20:33)
--- NOTE | 2019-06-13 23:43 | PROVIDER PROGRESS NOTE ---
Progress Note S: Patient underwent liver biopsy yesterday. CT chest showed numerous pulmonary mets and tumor thrombus with clot extending to the right atrium. Start on therapeutic lovenox. No acute overnight events. Patient denies complaints. Abdominal pain controlled. O: Last Vital Signs Temp 98.3 F 06/13/19 20:29 Pulse 77 06/13/19 20:29 Resp 18 06/13/19 20:29 BP 165/72 06/13/19 20:29 Pulse Ox 96 06/13/19 20:29 Height 5 ft 11 in Weight 190 lb 8 oz GEN: awake, alert, NAD HEENT: anicteric, MMM NECK: supple, no JVD PULM: CTAB, no wheezing CV: RRR, no murmurs ABD: soft NT/ND, NABS EXT: no cce NEURO: nonfocal LABS: 06/13/19 06/13/19 06:54 06:54 WBC 7.70 Hgb 13.4 L Plt Count 197 Sodium 134 L Potassium 3.5 Chloride 98 Carbon Dioxide 22 L BUN 3 L Creatinine 0.6 L AFP [id number] EGD FINDINGS: 1. The z-line was noted at 35cm from the incisors 2. The stomach was normal 3. The duodenum was normal COLON FINDINGS: There was moderate non-bleeding diverticulosis noted in the sigmoid colon. A few dimunitive and benign hyperplastic polyps were found in the rectum. Small internal hemorrhoids were found. No GI primary found. A/P: Mr. Edmundo Espino is a 68-year-old gentleman with history of hypertension, hyperlipidemia, noninsulin dependent diabetes, who presented with 3 weeks of nausea, vomiting, diarrhea, and abdominal pain found to have probable metastatic HCC with tumor thrombus. Degree of AFP elevation is diagnostic of HCC. Oncology following. EGD and colonoscopy was unrevealing. Pathology pending # Probable metastatic HCC # Tumor thrombus # Abnormal LFTs Will follow with you. Please call with questions
[2019-06-14] MEDS: NS 1,000 ML IV SCH (05:47)
[2019-06-14] MEDS: LOVENOX SUBQ SCH (05:47)
[2019-06-14 07:23] LABS: BASO# 0.02 X1000 (0.0-0.2); BASO% 0.3 % (0.0-0.8); EOS# 0.12 X1000 (0.0-0.7); EOS% 1.6 % (0.0-10.0); HEMATOCRIT 37.2 % (42.0-52.0); HEMOGLOBIN 12.8 g/dL (14.0-18.0); LYMPH# 1.31 X1000 (1.2-3.4); LYMPH% 17.8 % (20.5-51.1); MCH 30.8 PG (27-31); MCHC 34.4 g/dL (33-37); MCV 89.4 FL (81-99); MONO% 12.3 % (1.7-9.3); NEUT# 4.99 X1000 (1.4-6.5); PLT 201 X1000 (130-400); RBC 4.16 XMIL (4.7-6.1); RDW 12.3 % (11.5-14.5); WBC 7.34 X1000 (4.8-10.8)
[2019-06-14 07:31] VITALS: BP 145/68
[2019-06-14 07:39] LABS: AGAP 14; BUN 5 mg/dL (8-22); CALCIUM 9.2 mg/dL (8.8-10.2); CHLORIDE 103 mmol/L (98-107); COSMO 274; CREATININE 0.5 mg/dL (0.7-1.2); ESTIMATED GFR > 60; GLUCOSE 87 mg/dL (70-104); POTASSIUM 3.6 mmol/L (3.5-5.1); SODIUM 139 mmol/L (136-145); TCO2 22 mmol/L (25-35)
[2019-06-14] MEDS: SODIUM CHLORIDE 0.9% INJ PRN (09:37)
[2019-06-14] MEDS: FOLIC ACID PO SCH (09:37)
[2019-06-14] MEDS: PROTONIX IV SCH (09:37)
[2019-06-14] MEDS: TYLENOL PO PRN (09:38)
[2019-06-14] MEDS: TENORMIN PO SCH (09:38)
--- NOTE | 2019-06-14 11:38 | DISCHARGE SUMMARY ---
ADMISSION DATE: 06/09/2019 DISCHARGE DATE: PRINCIPAL DIAGNOSIS: Metastatic disease of unknown primary. SECONDARY DIAGNOSES: 1. Elevated alpha-fetoprotein level, suspect hepatocellular cancer. 2. Thrombosis involving the portal vein, as well as inferior vena cava and extending to the right atrium. 3. Right pleural effusion with ascites. 4. Right adrenal metastasis. 5. Hypercalcemia, most likely secondary to malignancy. 6. Hypertension. 7. Hyperlipidemia. 8. Gastroesophageal reflux disease. 9. Folic acid deficiency. DISCHARGE MEDICATIONS: Include the following: Eliquis 10 mg p.o. daily for 5 days, then 5 mg p.o. twice a day, folic acid 1 mg p.o. daily, atorvastatin 20 mg p.o. once a day, esomeprazole 40 mg p.o. daily, sucralfate 1 gram as directed, Atenolol 25 mg p.o. daily, metformin 500 mg p.o. daily. PROCEDURES DONE DURING THIS HOSPITAL STAY: Include the following: CT scan of the abdomen and pelvis on 06/09/2019 shows widely metastatic cancer of unknown origin. Chest CT on 06/12/2019 shows hepatic mass with two more thrombi in the portal vein and inferior vena cava, the latter extending to the right atrium, extensive pulmonary metastasis, right pleural effusion as well as ascites, right adrenal metastasis. Liver biopsy done on . Successful CT-guided biopsy done. Body scan nuclear medicine on 06/10/2019 shows mild degenerative uptake at the knee and shoulders. No abnormal uptake identified that would suggest bony metastatic disease. Chest x-ray on 06/09/2019 shows moderate linear atelectasis or scarring in the right lower lobe. EKG on 06/09/2019 shows normal sinus rhythm with nonspecific ST-T abnormalities. CONSULTATIONS DONE DURING THIS HOSPITAL STAY: 1. Dr. Edmundo Gonzalez, Gastroenterology. 2. Dr. Oksana Reddy, Hematology. HOSPITAL COURSE: Mr. Edmundo Espino is a 68-year-old male who has a history of hypertension and hyperlipidemia, and presents to the hospital because of a 3 to 4-week history of abdominal pain. Also at the time of presentation, the patient's calcium was elevated at 12.1 which was managed conservatively. CT scan of the abdomen and pelvis showed a 13 x 8 cm multifocal mass in the right lobe of the liver. There is periportal adenopathy. There is also enhancement of a nodule at the right adrenal gland, measuring about 3.7 x 2.5 cm with several scattered pulmonary nodules throughout the lungs. The patient had tumor markers done. Alpha fetoprotein level was found to be markedly elevated at 116,720. The patient subsequently had a liver biopsy done. The result is currently pending at this time. The patient was also noted to have low folic acid level, and was started on folic acid replacement. At this time, the patient is doing well. He is stable. PHYSICAL EXAMINATION: Vital Signs: Today, temperature 98.4 degrees, pulse 72, respirations 20, blood pressure 145/68, oxygen saturation 96%. HEENT: Atraumatic, normocephalic. Cardiovascular: S1, S2. Respiratory: Has evidence of good air entry bilaterally. Abdomen: Soft, nontender. No masses felt. Extremities: No significant edema. Central Nervous System: No obvious focal deficits noted. LABORATORY DATA: WBC 7.35, hematocrit 37.2, with a platelet count of 201,000. Sodium is 139, potassium 3.6, chloride is 103, bicarb 22, BUN is 5, creatinine 0.5. PLAN: The patient can be discharged home today. For the DVT involving the portal vein as well as inferior vena cava and extending to the right atrium, the patient will be placed on Eliquis. He understands the risks of taking this medication, including intracranial as well as GI bleed. The patient will need to follow up with Dr. Oksana Reddy in the outpatient regarding the biopsy report of the liver. The patient will also need to follow up with primary care physician in the outpatient. cc: Darius James [facility]
--- NOTE | 2019-06-14 22:44 | PROVIDER PROGRESS NOTE ---
Progress Note S: No acute overnight events. Afebrile. No N/V. He reports continued chronic RUQ pain. Appetite poor. Patient wants to go home. O: Last Vital Signs Temp 98.4 F 06/14/19 07:31 Pulse 72 06/14/19 07:31 Resp 20 06/14/19 07:31 BP 145/68 06/14/19 07:31 Pulse Ox 96 06/14/19 07:31 Height 5 ft 11 in Weight 190 lb 8 oz GEN: awake, alert, NAD HEENT: anicteric, MMM NECK: supple, no JVD PULM: CTAB, no wheezing CV: RRR, no murmurs ABD: soft NT/ND, NABS EXT: no cce NEURO: nonfocal LABS: 06/14/19 06/14/19 06:50 06:50 WBC 7.34 Hgb 12.8 L Plt Count 201 Sodium 139 Potassium 3.6 Chloride 103 Carbon Dioxide 22 L BUN 5 L D Creatinine 0.5 L EGD FINDINGS: 1. The z-line was noted at 35cm from the incisors 2. The stomach was normal 3. The duodenum was normal COLON FINDINGS: There was moderate non-bleeding diverticulosis noted in the sigmoid colon. A few dimunitive and benign hyperplastic polyps were found in the rectum. Small internal hemorrhoids were found. No GI primary found. A/P: Mr. Edmundo Espino is a 68-year-old gentleman with history of hypertension, hyperlipidemia, noninsulin dependent diabetes, who presented with 3 weeks of nausea, vomiting, diarrhea, and abdominal pain found to have probable metastatic HCC with tumor thrombus. Pathology pending. N/V/D resolved. # Probable metastatic HCC # Tumor thrombus # Abnormal LFTs Ok for patient to be discharged with follow-up with oncology. Follow-up with GI prn
== END 2019-06-14 12:12 | disposition home or self-care (01) | DRG 435 ==
LOC: ED 16:27 → 3N 23:28 → SUATTDRO 23:28
PROVIDERS: ATTEND Internal Medicine

== ENCOUNTER 2019-09-08 13:11 | Inpatient (IN) ==
[2019-09-08] MEDS ORDERED: ASPIRIN PO ONE (13:34)
--- NOTE | 2019-09-08 14:04 | Diag Imaging Result Doc PS360 ---
EXAM: CHEST-2 VIEWS INDICATION: SOB TECHNIQUE: 3 views COMPARISON: 08/31/2019 FINDINGS: There is increasing opacity at the right lung base that probably represents an enlarging effusion that is moderate in size. There is adjacent atelectasis and/or infiltrate at the right lung base. There is a calcified granuloma in the right lung. The left lung remains clear. The cardiomediastinal silhouette and central vasculature are grossly unremarkable. IMPRESSION: Enlarging effusion on the right that is moderate in size with adjacent atelectasis and/or infiltrate. Electronically signed by Jared Rios 09/08/2019 2:02 PM
--- NOTE | 2019-09-08 14:27 | EKG Report ---
Test Performed on : 09/08/2019 1:39:53 PM Test Reason : SOB Blood Pressure : / mmHG Vent. Rate : 099 BPM Atrial Rate : 099 BPM P-R Int : 148 ms QRS Dur : 078 ms QT Int : 364 ms P-R-T Axes : 068 056 212 degrees QTc Int : 467 ms Normal sinus rhythm. Low voltage QRS Cannot rule out Anterior infarct , age undetermined ST & T wave abnormality, consider inferolateral ischemia Abnormal ECG When compared with ECG of 29-AUG-2019 03:03, (Unconfirmed) Minimal criteria for Anterior infarct are now present T wave inversion now evident in Anterolateral leads Unconfirmed Result
[2019-09-08 14:31] LABS: INR 1.81; PROTIME 21.4 Seconds (11.0-16.0); PTT 42.3 Seconds (22.3-41.8)
[2019-09-08 15:17] LABS: ALB/GLOB RATIO 0.8; CALCIUM 7.9 mg/dL (8.8-10.2); CREATININE 1.6 mg/dL (0.7-1.2); POTASSIUM 3.4 mmol/L (3.5-5.1); TOTAL BILIRUBIN 1.32 mg/dL (0.20-1.00); TOTAL PROTEIN 6.6 g/dL (6.3-8.3)
[2019-09-08 15:26] LABS: BASO# 0.04 X1000 (0.0-0.2); BASO% 0.5 % (0.0-0.8); EOS# 0.03 X1000 (0.0-0.7); EOS% 0.3 % (0.0-10.0); HEMATOCRIT 48.8 % (42.0-52.0); HEMOGLOBIN 16.6 g/dL (14.0-18.0); IMM GRAN# 0.06 X1000 (0.0-0.04); IMM GRAN% 0.7 % (0.0-0.5); LYMPH# 1.24 X1000 (1.2-3.4); LYMPH% 14.2 % (20.5-51.1); MCH 30.7 PG (27-31); MCV 90.2 FL (81-99); MONO# 0.72 X1000 (0.11-0.59); MONO% 8.2 % (1.7-9.3); MPV 9.8 FL (7.4-10.4); NEUT# 6.66 X1000 (1.4-6.5); NEUT% 76.1 % (42.2-75.2); PLT 91 X1000 (130-400); RBC 5.41 XMIL (4.7-6.1); RDW 14.5 % (11.5-14.5); WBC 8.75 X1000 (4.8-10.8)
[2019-09-08] MEDS ORDERED: ROCEPHIN 1 GM in NS 50 ML IV ONE (15:52)
[2019-09-08 16:10] LABS: URINE SOURCE CLEAN CATCH
[2019-09-08 16:13] LABS: BILIRUBIN URINE NEGATIVE (NEGATIVE); BLOOD URINE SMALL (NEGATIVE); COLOR YELLOW; GLUCOSE URINE NEGATIVE (NEGATIVE); KETONE URINE NEGATIVE (NEGATIVE); LEUKOCYTES URINE NEGATIVE (NEGATIVE); NITRITE URINE NEGATIVE (NEGATIVE); PH URINE 5.5; PROTEIN URINE 30 mg/dL (NEGATIVE); SP GRAVITY URINE 1.016; TURBIDITY URINE CLEAR (CLEAR); UROBILINOGEN URINE NORMAL (NORMAL)
[2019-09-08 16:15] LABS: UR EPITHELIAL CELLS <10 /HPF (<10); URINE BACTERIA NEGATIVE /HPF; URINE RBC <10 /HPF (<10); URINE WBC <10 /HPF (<10)
--- NOTE | 2019-09-08 17:06 | PROVIDER DOCUMENTATION ---
This chart was entered by Alexus Rios Scribe, acting as scribe for Karo Coates MD. HPI-Respiratory General - General Chief Complaint: Shortness of Breath Stated Complaint: SOB Time Seen by Provider: 09/08/19 14:00 Source: EMS Allergies/Adverse Reactions: Patient Allergies Allergy/AdvReac Type Severity Reaction Status Date / Time No Known Allergies Allergy Verified 09/08/19 13:45 Home Medications: Home Medication List Medication Instructions Recorded Confirmed Last Taken Type Esomeprazole Magnesium 40 mg PO HS PRN PRN 06/09/19 09/08/19 09/07/19 20:30 History Folic Acid 1 mg PO DAILY tab 06/14/19 09/08/19 Unknown Rx Apixaban [Eliquis] 5 mg PO BID 08/29/19 09/08/19 09/08/19 07:30 History Hydrocodone/Acetaminophen [[place] 7.5 mg PO Q6H PRN PRN 08/29/19 09/08/19 09/08/19 10:00 History 7.5-325 Tablet] Mirtazapine [Remeron] 15 mg PO QHS 08/29/19 09/08/19 09/07/19 20:30 History Prochlorperazine [Compazine] 10 mg PO 4XDAY PRN PRN 08/29/19 09/08/19 Unknown History Lactulose 30 ml PO DAILY #1000 ml 09/02/19 09/08/19 09/08/19 07:30 Rx Tamsulosin [Flomax] 0.4 mg PO DAILY #90 cap 09/02/19 09/08/19 09/08/19 07:30 Rx Furosemide [Lasix] 40 mg PO DAILY #30 tab 09/12/19 Unknown Rx - History of Present Illness-Resp Nature of Presenting Problem: pt is a 69 yowm c/o sob, ascites, and dry cough. ems sts pt choked on pail pill, was d/c from hospital on wednesday. dr. winn is pcp. hx of liver cancer Severity in ED: reports: mild Timing: reports: still present Associated Symptoms: reports: shortness of breath, other (ascites) Recently seen or treated by another doctor?: Yes Review of Systems - Adult - REVIEW OF SYSTEMS - ADULT Constitutional: reports: fatique. denies: fever Eyes: reports: no symptoms reported Ears, Nose, Mouth & Throat: reports: no symptoms reported Cardiovascular: reports: no symptoms reported Respiratory: reports: see HPI, shortness of breath. denies: dyspnea on exertion, pleurisy, wheezing Gastrointestinal: reports: no symptoms reported Genitourinary: reports: no symptoms reported Musculoskeletal: reports: no symptoms reported Integumentary: reports: no symptoms reported Neurological: reports: no symptoms reported Psychiatric: reports: no symptoms reported Endocrine: reports: no symptoms reported Hematologic/Lymphatic: reports: no symptoms reported Allergic/Immunologic: reports: no symptoms reported All Other Systems: Reviewed and Negative Past History - Adult - PAST MEDICAL HISTORY-ADULT Review of Records: reports: Nursing Assessment Review, Medications Reviewed, Social history reviewed & non-contributory. Major Childhood Illnesses: reports: denies history Cardiovascular: reports: denies history Respiratory: reports: denies history Gastrointestinal: reports: cancer (liver), other (ulcers) Obstetrical/Gynecological: reports: denies history Genitourinary: reports: denies history Musculoskeletal: reports: chronic pain (neck) Neurological: reports: Seizures/Epilepsy Endocrine/Immune: reports: Diabetes (borderline) Other Conditions: reports: denies history - PRIOR SURGERIES/PROCEDURES Surgical/Procedure History: reports: none (no abdominal), back/neck, other - IMMUNIZATION STATUS Childhood Immunizations: See Nurse Assessment Flu Vaccine: See Nurse Assessment - FAMILY HISTORY Family History: other ([place]) - SOCIAL HISTORY Smoking: other (former smoker) Substance Use: none/never Physical Exam-General - PHYSICAL EXAM-ADULT Initial Vital Signs Reviewed: Yes - CONSTITUTIONAL General Appearance: alert, no apparent distress, slow to respond. negative: appears well, lethargic, combative - EYES Eyes: PERRL/EOMI - HEAD, EARS, NOSE, MOUTH & THROAT HENMT: normocephalic/atraumatic, moist mucous membranes - NECK Neck: non-tender, full range of motion, supple, normal inspection - RESPIRATORY Respiratory: chest non-tender, lungs clear, normal breath sounds - CARDIOVASCULAR Cardiovascular: normal peripheral pulses, regular rate, rhythm - GASTROINTESTINAL (ABDOMEN) Abdominal Exam: normal bowel sounds, non tender, soft - MUSCULOSKELETAL Back Exam: normal inspection Extremity: normal range of motion, non-tender, normal capillary refill, pelvis stable, swelling (BLE EDEMA W/WEEPING SORES). negative: normal inspection, pulse deficit, pedal edema, slow capillary refill - SKIN Integumentary: normal color, normal turgor, warm/dry - NEUROLOGIC Neurologic: grossly normal, no motor/sensory deficits - PSYCHIATRIC Psych/Mental Status: normal mood/affect, normal thought content, normal thought process, oriented x 3 Progress - PLAN OF CARE/RESULTS Progress/Plan/Lab Results: Orders Category Date Time Status Admit - [facility] Routine AdmDCTranf 09/08/19 18:42 Active Cardiac Monitoring DIRECTED Care 09/08/19 13:34 Completed IV Insertion NOW Care 09/08/19 15:17 Completed Intake and Output-Strict ORDERED Care 09/08/19 18:42 Completed NEWS Score 2-4:Order NEWS Lactate Series NOW Care 09/08/19 13:30 Completed Notify Provider of NEWS Score NOW Care 09/08/19 15:17 Completed Nursing- MD Consult Request ROUTINE Care 09/08/19 18:42 Completed Oxygen Therapy- ED Nursing DIRECTED Care 09/08/19 13:34 Completed Saline Loc NOW Care 09/08/19 13:34 Completed Update & Confirm Home Medicati ROUTINE Care 09/08/19 18:42 Completed Vital Signs Order Q 4-HR ASSESS Care 09/08/19 18:42 Completed Z-Document. for Tele Applied ORDERED Care 09/08/19 18:42 Completed MD [Physician/Provider Consults] Routine Cons 09/08/19 18:42 Ordered Physician/Provider Consults Routine Cons 09/08/19 18:42 Ordered Heart Healthy Diet Diet 09/08/19 18:42 Completed CHEST-2 VIEWS [RAD] Stat Exams 09/08/19 13:34 Completed US ABDOMEN-COMPLETE [US] Stat Exams 09/09/19 07:00 Completed BASIC METABOLIC PANEL [CHEM] Routine Lab 09/09/19 05:59 Completed BLOOD CULTURE [BLDCUL] Stat Lab 09/08/19 15:48 Completed BNP [PRO B-NATRIURETIC PEPTIDE] Stat Lab 09/08/19 15:48 Completed CBC WITH DIFF [HEME] Routine Lab 09/09/19 05:59 Completed CBC WITH ELECTRONIC DIFF [HEME] Stat Lab 09/08/19 14:08 Completed CK PROFILE [SP CHEM] Stat Lab 09/08/19 14:08 Completed COMPREHENSIVE METABOLIC PANEL [CHEM] Stat Lab 09/08/19 14:08 Completed LACTATE, PLASMA [CHEM] Lab 09/08/19 14:08 Completed LACTATE, PLASMA [CHEM] Lab 09/08/19 18:59 Completed PRO B-NATRIURETIC PEPTIDE Stat Lab 09/08/19 14:08 Completed PROTIME WITH INR [COAG] Stat Lab 09/08/19 14:08 Completed PTT [COAG] Stat Lab 09/08/19 14:08 Completed TROPONIN T HIGH SENSITIVITY Stat Lab 09/08/19 14:08 Completed URINALYSIS W/POSS RFLX CULT [URINALYSIS] Stat Lab 09/08/19 15:59 Completed Acetaminophen [Tylenol] Med 09/08/19 18:42 Discontinued 650 mg PO Q6H PRN PRN Albuterol 2.5MG/Ipratrop 0.5MG [Duoneb (A & A)] Med 09/08/19 19:30 Discontinued 3 ml INH RTQ4H Aspirin Med 09/08/19 13:34 Discontinued 325 mg PO NOW ONE CefEPIME [Maxipime] 1 gm Med 09/08/19 18:42 Discontinued 0.9% Sodium Chloride Inj [Ns] 50 ml IV Q12H CefTRIAXONE [Rocephin] 1 gm Med 09/08/19 15:52 Discontinued 0.9% Sodium Chloride Inj [Ns] 50 ml IV NOW Furosemide [Lasix] Med 09/08/19 18:42 Discontinued 40 mg IV Q12H Ondansetron [Zofran] Med 09/08/19 18:42 Discontinued 4 mg IV Q4H PRN PRN Aerosol Treatments Routine Oth 09/08/19 18:42 Completed Aerosol Treatments Stat Oth 09/08/19 18:42 Completed Telemetry [OM.EQ] Routine Oth 09/08/19 18:42 Active EKG [EKG] Stat Ther 09/08/19 13:34 Draft Transfer/Admit Order [TRANSFER] Routine Transfer 09/08/19 16:44 Completed Result Diagrams: 09/11/19 06:30 09/11/19 06:30 - EKG 1 Time of EKG reading by physician:: 13:39 EKG Read and Signed by:: Karo Coates EKG Interpretation (*Must complete 3 of following elements*): Abnormal Rate: 99 Rhythm: NSR [place]: normal QRS: other (low voltage qrs) [place] Interval: normal ST Wave: non-specific ST changes (ST & T wave abnormality, consider inferolateral ischemia) Comments: cannot rule out anterior infarct, age undetermined - CONSULTS/PCP/HOSPITALIST Notification #1 *Consult/PCP/Hospitalist*: THIAGO Time Discussed: 15:52 Consult Disposition: Will see in ED, Admit Departure - Departure Date of Disposition Decision: 09/08/19 Time of Disposition Decision: 20:20 DIAGNOSIS: Dyspnea Qualifiers: Dyspnea type: unspecified Qualified Code(s): R06.00 - Dyspnea, unspecified Ascites Qualifiers: Ascites type: other type Qualified Code(s): R18.8 - Other ascites Disposition: ADMITTED INPATIENT 09 Certified Medical Emergency: Emergent Condition: Stable - Critical Care Note This patient required my direct & personal management of CC.: No Attestation - Physician/ GERALD Attestation Patient care was provided by Advanced Practice Provider:: No The physician spent face to face time with patient:: Yes Advanced Practice Provider documentation review:: Supervising physician onsite and consulted in the evaluation and care of this patient. The physician did have a face to face encounter with the patient. This chart was documented by the indicated scribe, (Alexus Rios Scribe) and accurately reflects the services I performed and decisions made by me, Karo Coates MD, as attested by the provider's signature.
--- NOTE | 2019-09-08 18:00 | HISTORY AND PHYSICAL ---
PRIMARY CARE PHYSICIAN: Listed as none. ONCOLOGIST: Dr. Oksana Reddy. CHIEF COMPLAINT: Shortness of breath that has progressively worsened over the last couple of weeks. HISTORY OF PRESENTING ILLNESS: This is a 69-year-old male who presented to [facility] with complaints of a 2-week history of shortness of breath that had progressively worsened. He was noted to have been discharged from our facility on 09/02/2019 with a metabolic encephalopathy, a hypovolemic hyponatremia, acute kidney injury and metastatic hepatocellular cancer with metastasis to the adrenal gland and lungs. Today when he arrived to the emergency room, he had an O2 saturation of 94%. His sodium was 121, BUN of 42 with a creatinine of 1.6, but this is improved from his baseline. AST and ALT are 117 and 49, but those are also improved from when he was discharged. He had a plasma lactate of 3.7. His chest x- ray showed an enlarging effusion on the right that is moderate in size with adjacent atelectasis and/or infiltrate. His chest x-ray on 08/31/2019 showed a nonspecific increase and opacifications of the right lung base so this moderate-sized pleural effusion is new, and he will be admitted for further evaluation and treatment. PAST MEDICAL HISTORY: 1. Metastatic hepatocellular carcinoma stage IV. 2. Hypertension. 3. Hyperlipidemia. 4. Hematochromatosis. 5. Portal vein thrombus. 6. Borderline diabetes and epilepsy as a teenager. PAST SURGICAL HISTORY: Back surgery. FAMILY HISTORY: Reviewed and noncontributory. SOCIAL HISTORY: Currently lives with his , was a former smoker but quit 30 years ago. Denied any alcohol or illicit drug use. ALLERGIES: He has no known drug allergies. HOME MEDICATIONS: A current list will need to be obtained, reconciled, reviewed and restarted as appropriate. LABORATORY DATA: Showed a white blood cell count of 8.75, hemoglobin 16.6, hematocrit 48.8, platelets 91,000. PT and INR of 21.4 and 1.81. Sodium 121, potassium 3.4, chloride 83, CO2 21, BUN of 42, creatinine 1.6, glucose 148, AST of 117, ALT 49. Again, those are improved numbers. Plasma lactate of 3.7. Urinalysis was negative. Chest x-ray showed an enlarging effusion on the right that is moderate in size with adjacent atelectasis and/or infiltrate. EKG showed normal sinus rhythm at 99. REVIEW OF SYSTEMS: He denied any fever, chills, blurred vision, dizziness, chest pain, coughing. He had shortness of breath that worsened over the last 2 weeks. Denied any abdominal pain. He did have abdominal distention, swelling to bilateral lower legs that had worsened since his discharge and denied any nausea, vomiting, constipation, diarrhea, burning or hurting with urination. PHYSICAL EXAMINATION: VITAL SIGNS: On arrival, he had a temperature of 96 degrees, pulse 102, respirations 17, blood pressure 130/94, saturating 94% on room air. GENERAL: This is a 69-year-old male who is lying in the bed and answers questions appropriately. HEMNT: Normocephalic, atraumatic. Normal ENT inspection. Oropharynx and nares are clear. EYES: Pupils are equal, round and reactive to light and accommodation. Extraocular movements are intact. NECK: Normal inspection, normal range of motion. LUNGS: Clear to auscultation bilaterally with equal lung expansion and chest wall movement. HEART: Regular rate and rhythm. No murmurs, rubs, or gallops. ABDOMEN: Firm, distended. Bowel sounds were present x4 quadrants. MUSCULOSKELETAL: He had 4+ pitting edema to bilateral lower extremities with some weeping sores. NEUROLOGICAL: The cranial nerves 2 through 12 appear grossly intact. ASSESSMENT: 1. Right lower lobe pleural effusion, moderate in size. 2. Right lower lobe pneumonia. 3. Hyponatremia. 4. Metastatic hepatocellular carcinoma, stage IV. PLAN: He will be admitted to the medical unit, placed on telemetry, O2 per protocol. We will consult pulmonology in the a.m. We will consult Oncology. We will do a complete abdomen ultrasound in the a.m., place on cefepime 1 g IV q.12, Lasix 40 mg IV q.12 DuoNeb q.4 hours, serial lactates. Recheck CBC, BMP in the a.m. Further orders after seen by attending, and we will update and confirm home medications. Dictated by ANA ROSA Manjarrez for Cecilio Mesa MD cc: ANA ROSA Manjarrez MD
[2019-09-08] MEDS ORDERED: ZOFRAN IV PRN (18:42)
[2019-09-08] MEDS ORDERED: TYLENOL PO PRN (18:42)
[2019-09-08] MEDS: LASIX IV SCH (19:16)
[2019-09-08] MEDS: MAXIPIME 1 GM in NS 50 ML IV SCH (19:16)
[2019-09-08] MEDS: DUONEB (A & A) INH SCH ×2 (19:29→22:54)
[2019-09-09] MEDS: RESTORIL PO PRN ×2 (01:39→21:14)
[2019-09-09] MEDS: DUONEB (A & A) INH SCH ×6 (03:44→22:39)
[2019-09-09 06:55] LABS: BASO# 0.02 X1000 (0.0-0.2); BASO% 0.3 % (0.0-0.8); EOS# 0.05 X1000 (0.0-0.7); EOS% 0.7 % (0.0-10.0); HEMATOCRIT 44.9 % (42.0-52.0); HEMOGLOBIN 15.5 g/dL (14.0-18.0); IMM GRAN# 0.02 X1000 (0.0-0.04); IMM GRAN% 0.3 % (0.0-0.5); LYMPH# 0.78 X1000 (1.2-3.4); LYMPH% 11.6 % (20.5-51.1); MCH 30.9 PG (27-31); MCHC 34.5 g/dL (33-37); MCV 89.6 FL (81-99); MONO# 1.17 X1000 (0.11-0.59); MONO% 17.4 % (1.7-9.3); MPV 9.9 FL (7.4-10.4); NEUT# 4.68 X1000 (1.4-6.5); NEUT% 69.7 % (42.2-75.2); PLT 97 X1000 (130-400); RBC 5.01 XMIL (4.7-6.1); RDW 14.3 % (11.5-14.5); WBC 6.72 X1000 (4.8-10.8)
[2019-09-09 06:58] LABS: CALCIUM 7.4 mg/dL (8.8-10.2); CREATININE 1.5 mg/dL (0.7-1.2); POTASSIUM 3.6 mmol/L (3.5-5.1)
[2019-09-09] MEDS: MAXIPIME 1 GM in NS 50 ML IV SCH ×2 (09:33→21:02)
[2019-09-09] MEDS: LASIX IV SCH (09:33)
--- NOTE | 2019-09-09 09:54 | Diag Imaging Result Doc PS360 ---
EXAM: CT THORAX W/O CONTRAST INDICATION: dyspnea TECHNIQUE: This exam was performed using automated exposure control, adjustment of mA or kV according to patient size, and/or use of iterative reconstruction technique. COMPARISON: 06/12/2019 FINDINGS: There is centrilobular emphysema. There is a large right pleural effusion with significant atelectasis on the right including complete collapse of the right lower lobe. There are innumerable small nodules scattered throughout both lungs consistent with metastatic disease. Many of these are at least slightly larger than the previous study. For reference, there is a left lower lobe lung nodule on image 70 of series 3 measuring 1.3 cm axially (1.0 cm previously). There is mild subsegmental atelectasis in the lingula and at the left lung base. There are also a few calcified granulomata bilaterally that are stable. There are calcified mediastinal and hilar lymph nodes indicating prior granulomatous disease. There are a few small shotty nonspecific noncalcified mediastinal and hilar lymph nodes. There is no cardiomegaly. There is nothing to suggest local bony metastatic disease to the thorax. Limited views of the upper abdomen reveals a large volume ascites. The ascites has increased compared to the previous study. There is a large lobulated right hepatic lobe mass that appears to be essentially stable as compared to the previous study. There is a right adrenal mass that is suspicious for a metastatic lesion. It is approximately stable. There is a large celiac lymph node that appears more prominent than the previous study measuring 3.1 cm axially (2.6 cm previously). IMPRESSION: 1.Large right pleural effusion with significant atelectasis on the right including complete collapse of the right lower lobe. 2.Innumerable pulmonary metastases, some of which are slightly larger than the previous study. 3.Large volume ascites that is worse than the previous study. 4.Approximately stable large irregular right hepatic lobe mass. 5.Worsening celiac lymphadenopathy. 6.Approximately stable right adrenal metastatic lesion. Electronically signed by Jared Rios 09/09/2019 9:51 AM
--- NOTE | 2019-09-09 10:01 | Diag Imaging Result Doc PS360 ---
EXAM: US ABDOMEN-COMPLETE INDICATION: Ascites, Stg4 liver CA COMPARISON: Renal ultrasound dated 08/30/2019 FINDINGS: There is large volume ascites. The gallbladder appears normal with no stones, wall thickening, or pericholecystic fluid. The common bile duct is normal in diameter. Sonographic Marte's sign was reported to be negative. There is a known large irregular mass involving the right hepatic lobe consistent with known hepatocellular carcinoma. This is also seen on CT performed earlier today. Portal venous flow is hepatopetal. The pancreas is obscured. There is a filling defect seen in the IVC adjacent to the liver indicating thrombus. This is also seen on a prior CT dated 06/09/2019. The visualized portions of the aorta are grossly unremarkable. The spleen is unremarkable. The kidneys are grossly unremarkable. IMPRESSION: 1.Large volume ascites. 2.Known large irregular right hepatic lobe mass compatible with history of hepatocellular carcinoma. 3.Known IVC thrombus adjacent to the liver. Electronically signed by Jared Rios 09/09/2019 9:59 AM
[2019-09-09] MEDS ORDERED: COMPAZINE PO PRN (15:13)
--- NOTE | 2019-09-09 19:01 | CONSULTATION ---
DATE OF CONSULTATION: 09/09/2019 REQUESTING PROVIDER: ANA ROSA Manjarrez REASON FOR CONSULT: Shortness of breath. HISTORY OF PRESENT ILLNESS: This is a 69-year-old gentleman with a history of metastatic hepatocellular carcinoma stage IV, hypertension, hematochromatosis, portal vein thrombosis and diabetes mellitus. He presents to the emergency room complaining of a 2-week history of progressive shortness of breath. He was discharged from [facility] on 09/02/2019 after being hospitalized for metabolic encephalopathy, hypovolemic hyponatremia and acute kidney injury, as well as metastatic hepatocellular cancer with metastasis to the adrenal glands and lungs. He states that he was weak and short of breath on discharge, and this has progressed during this time. On arrival to the emergency room he did have an O2 saturation of 94% with a sodium of 121. Chest x-ray showed enlarging effusion on the right that was moderate in size with adjacent atelectasis or infiltrate, with the left lung being clear. PAST MEDICAL HISTORY: 1. Metastatic hepatocellular cancer stage IV. 2. Hypertension. 3. Hyperlipidemia. 4. Hematochromatosis. 5. Portal vein thrombosis, on Eliquis. 6. Borderline diabetes. 7. Epilepsy as a teenager. PAST SURGICAL HISTORY: Back surgery. SOCIAL HISTORY: Currently lives with his . He quit smoking 30 years ago. He denies any alcohol or illicit drug use. ALLERGIES: No known drug allergies. FAMILY HISTORY: Diabetes and hypertension. HOME MEDICATIONS: A list will be obtained by the nursing staff, and once verified we will review and restart as appropriate. REVIEW OF SYSTEMS: Discussed with the patient, with pertinent positives stated in the HPI. He denied any syncope or dizziness, any fever or chills, any productive cough, hemoptysis, any palpitations, chest pain, any nausea, vomiting, diarrhea, constipation, black or bloody vomitus or stools, any hematuria, dysuria, frequency or urgency. PHYSICAL EXAMINATION: This is a 69-year-old gentleman who is lying flat in the bed, in no distress. Vital signs: Blood pressure is 102/74 with a heart rate of 94, respirations are 18, temperature is 97.5 degrees oral with room air saturations 96% to 98%.Eyes: Pupils are equal, round and react to light. EOMs are intact. Sclerae are icteric. HEENT: Head is normocephalic, atraumatic. Mucous membranes are moist. Neck is supple. Trachea midline. Cardiovascular: Regular rate and rhythm. S1 and S2 appreciated. No murmurs. Pulmonary: Breath sounds are clear, with no increased work of breathing noted. Chest rises and falls symmetric with respiration. Gastrointestinal: Abdomen is firm, distended, with bowel sounds in all 4 quadrants. Musculoskeletal: He has 4+ pitting edema from his upper thighs down bilateral, with areas of weeping noted just about the ankle level, lower nicolas. Bilateral arms have 4+ pitting edema. Neurologic: He is alert and oriented x3. LABORATORY DATA: WBC is 6.7 with hemoglobin 15.5, hematocrit 44.9, platelets 97,000. INR is 1.81. Sodium 121, potassium 3.6, BUN 44, creatinine 1.5 with a glucose of 108. Blood cultures are pending. DIAGNOSTIC DATA: 1. Chest x-ray revealed enlarging effusion on the right that is moderate in size, with adjacent atelectasis and/or infiltrate. 2. Abdominal ultrasound: Large-volume ascites; known large irregular right hepatic lobe mass, compatible with hepatocellular carcinoma; known IVC thrombus adjacent to the liver. 3. CT of the chest without contrast revealed large right pleural effusion with significant atelectasis on the right, including complete collapse of the right lower lobe; innumerable pulmonary metastases, some of which are larger than previous study of 06/12/2019; large-volume ascites that is worse than the previous study; approximately stable large irregular right hepatic mass; worsening celiac lymphadenopathy; approximately stable right adrenal metastatic lesion. ASSESSMENT: This is a 69-year-old gentleman with: 1. Right lower lobe pleural effusion. 2. Right lower lobe pneumonia. 3. Metastatic hepatocellular cancer stage IV. PLAN: 1. We will continue bronchodilators as ordered. 2. Continue diuresis with IV Lasix b.i.d. 3. Continue with antibiotics of Maxipime and Rocephin. The patient will need a paracentesis as well as a thoracentesis versus chest tube, versus long- term PleurX catheter to the right. It is recommended that paracentesis be performed first. Given the patient's history, results of scans and that the patient is a Do Not Resuscitate/Allow Natural level 1, we will consult Palliative Care to discuss hospice and home care. Thank you for allowing us to participate in this patient's care. Dictated by ANA ROSA Shi for Vishnu Cleaning MD cc: ANA ROSA Shi MD
--- NOTE | 2019-09-09 19:54 | GENERAL SURGERY CONSULTATION ---
DATE: 09/09/2019 REQUESTING PHYSICIAN: Dr. Mesa. REASON FOR CONSULT REQUEST: Potential for placement of a PleurX catheter. HISTORY OF PRESENT ILLNESS: This is a 69-year-old gentleman with stage IV hepatocellular carcinoma. He has been previously admitted to the hospital for metabolic encephalopathy, but now he came in with shortness of breath. He has developed likely what is a malignant pleural effusion and malignant ascites, and I was asked to weigh an opinion. The patient is not currently short of breath and does not have any abdominal pain. PAST MEDICAL HISTORY: Metastatic hepatocellular carcinoma stage IV, hypertension, hyperlipidemia, hemochromatosis, portal vein thrombus, borderline diabetes and epilepsy. PAST SURGICAL HISTORY: Includes back surgery. FAMILY HISTORY: Reviewed with patient, noncontributory. SOCIAL HISTORY: Former smoker. ALLERGIES: None reported. HOME MEDICATIONS: In the MAR and reviewed. REVIEW OF SYSTEMS: A full 14 systems were reviewed and are negative except as specified in HPI. PHYSICAL EXAMINATION: Vital Signs: Patient is currently afebrile. Vital signs are stable. General: No acute distress. Ill-appearing male, looks stated age. HEENT: Normocephalic, atraumatic. Pupils equal, round, reactive to light. Mucous membranes moist. Oropharynx benign. Neck: Supple. Trachea midline. Cardiovascular: Regular rate and rhythm. Lungs: Grossly clear except some decreased breath sounds noted on the right side, but no increased labored breathing. Abdomen: Distended but nontender. Extremities: Moves all extremities. Neurologic: Grossly intact. Skin: No signs of jaundice. Vascular: All extremities perfused. LABORATORY: Reviewed imaging reviewed. ASSESSMENT AND PLAN: A 69-year-old gentleman with a large right pleural effusion and large-volume ascites. 1. Right pleural effusion. At this time, he does not seems particularly symptomatic, so I agree with maybe potentially doing a thoracentesis first after they probably do his paracentesis tomorrow, and we will see how he does with the thoracentesis before placing a PleurX catheter. Again, agree with Dr. Cleaning we should probably address the ascites first and then manage his chest, since he is not particularly short of breath at the moment. 2. Malignant ascites. Please see above, but agree with addressing this with a paracentesis first. I appreciate the consult. I will continue to follow. cc: Damon Pichardo MD
--- NOTE | 2019-09-09 20:04 | PROGRESS NOTE ---
DATE: 09/09/2019 SUBJECTIVE: The patient has no major complaints. OBJECTIVE: Blood pressure is 121/84, heart rate of 108, respiratory rate 12, temperature 97.8 degrees, 97% on room air.Cardiovascular: Regular rate and rhythm. Pulmonary: Bilateral breath sounds, clear to auscultation. GI: Soft, nontender, nondistended. Bowel sounds were positive. LABORATORY DATA: White count is 6, hemoglobin and hematocrit 15 and 44, platelets of 97,000. Sodium of 121, BUN and creatinine of 44 and 1.5. ASSESSMENT AND PLAN: 1. Large pleural effusion, possibly parapneumonic versus malignant. We will continue empiric antibiotics. Plan for thoracentesis versus a PleurX catheter. I have gone ahead and pursued Surgery consult for the placement of a PleurX catheter. 2. Ascites, possibly malignant. We will plan for paracentesis tomorrow. That will give him 48 hours after anticoagulation. 3. Inferior vena cava thrombus. We will need to resume anticoagulation soon, but not yet. 4. Hyponatremia, which may be multifactorial. We will check urine electrolytes. I am not sure if diuretics are going to help in this situation, but we are going to look at seeing how he does. We will go ahead and give him some albumin and monitor. He may benefit from Samsca. We are going to continue to monitor based on his laboratory data. 5. Disposition pending clinical status. cc: Cecilio Mesa MD
[2019-09-09] MEDS: REMERON PO SCH (21:02)
[2019-09-09 21:11] LABS: UR PROT RANDOM 45.6 mg/dL; UR SODIUM < 10 mmoll
[2019-09-10] MEDS: NORCO-7.5 PO PRN ×2 (00:15→22:33)
[2019-09-10] MEDS: DUONEB (A & A) INH SCH ×6 (03:35→22:49)
--- NOTE | 2019-09-10 06:31 | GENERAL SURGERY PROGRESS NOTE ---
DATE: 09/10/2019 SUBJECTIVE: Patient seems to be complaining of more shortness of breath today than he did yesterday. He is sitting upright. OBJECTIVE: Vital Signs: Patient is currently afebrile. His vital signs stable. General: No acute distress. HEENT: Normocephalic, atraumatic. Pupils equal, round, reactive to light. Mucous membranes moist. Oropharynx benign. Neck: Supple. Trachea midline. Cardiovascular: Regular rate and rhythm. Lungs: Decreased breath sounds on the right. Abdomen: Distended but grossly unchanged. ASSESSMENT AND PLAN: A 69-year-old gentleman with pleural effusion and tense ascites. 1. Pleural effusion. At this time, he has gotten a little more short of breath. He is going down for paracentesis today, may have them try to do a thoracentesis after the paracentesis, if he is still complaining of shortness of breath. 2. Abdominal ascites. At this time, it looks like he is potentially scheduled for paracentesis today. We will follow up with symptomatic relief but, again, if he is going down for paracentesis and he is still short of breath, we will ask Radiology to do a thoracentesis at that time to get some symptomatic improvement. If he persists in developing pleural effusion, maybe consider PleurX catheter. cc: Damon Pichardo MD
[2019-09-10 06:42] LABS: BASO% 0.2 % (0.0-0.8); EOS% 0.5 % (0.0-10.0); HEMATOCRIT 49.1 % (42.0-52.0); HEMOGLOBIN 16.7 g/dL (14.0-18.0); IMM GRAN% 0.7 % (0.0-0.5); LYMPH% 10.9 % (20.5-51.1); MCH 30.7 PG (27-31); MCV 90.3 FL (81-99); MONO% 17.4 % (1.7-9.3); MPV 9.8 FL (7.4-10.4); NEUT# 5.83 X1000 (1.4-6.5); NEUT% 70.3 % (42.2-75.2); PLT 108 X1000 (130-400); RBC 5.44 XMIL (4.7-6.1); RDW 14.6 % (11.5-14.5); WBC 8.29 X1000 (4.8-10.8)
[2019-09-10 06:43] LABS: BASO# 0.02 X1000 (0.0-0.2); EOS# 0.04 X1000 (0.0-0.7); IMM GRAN# 0.06 X1000 (0.0-0.04); MONO# 1.44 X1000 (0.11-0.59)
[2019-09-10 07:28] LABS: CALCIUM 7.6 mg/dL (8.8-10.2); CREATININE 1.6 mg/dL (0.7-1.2)
[2019-09-10] MEDS ORDERED: ALBUMIN 25% IV ONE (08:04)
[2019-09-10] MEDS ORDERED: NS 50 ML IV SCH (08:15)
[2019-09-10] MEDS ORDERED: NS 1,000 ML IV SCH (08:30)
[2019-09-10] MEDS ORDERED: LASIX IV SCH (09:00)
[2019-09-10] MEDS: MAXIPIME 1 GM in NS 50 ML IV SCH ×2 (10:17→22:30)
[2019-09-10] MEDS: LACTULOSE PO SCH (10:17)
[2019-09-10] MEDS: FLOMAX PO SCH (10:18)
[2019-09-10] MEDS: FOLIC ACID PO SCH (10:18)
[2019-09-10 16:21] LABS: CALCIUM 7.8 mg/dL (8.8-10.2); CREATININE 1.6 mg/dL (0.7-1.2); POTASSIUM 3.6 mmol/L (3.5-5.1)
--- NOTE | 2019-09-10 17:52 | PULMONOLOGY PROGRESS NOTE ---
DATE: 09/10/2019 SUBJECTIVE: Mr. Perez is lying flat in the bed. He feels that his abdomen is distended more and that he is more short of breath at this time. OBJECTIVE: Vital Signs: Blood pressure is 111/81 with a heart rate of 96, respirations are 16, temperature is 97.8 degrees oral, with O2 saturations 95 to 96% on room air. Cardiovascular: Regular rate and rhythm. S1 and S2 appreciated. He has no murmur. Pulmonary: Breath sounds are clear with no increased work of breathing noted. He is decreased on the right. Chest does rise and fall symmetrically with respiration. Chest wall is nontender to palpation. Gastrointestinal: Abdomen is large, firm, distended, with bowel sounds that are distant in all 4 quadrants. Musculoskeletal: He does have 4+ pitting edema from upper thighs down with areas of weeping noted just above the ankle level on both legs. He does have pitting edema to both arms. Neurologic: He is alert and oriented x3. LABS: WBC is 8.2, with hemoglobin 16.7, hematocrit 49.1, platelets of 108,000. Sodium is 118, with potassium of 4, BUN 45, creatinine 1.6, with a glucose of 109. IMPRESSION: This is a 69-year-old gentleman with: 1. Abdominal ascites. The patient is scheduled for paracentesis in radiology today. 2. Right lower lobe pleural effusion. He is scheduled for thoracentesis today. 3. Right lower lobe pneumonia. We will continue with Maxipime and Rocephin. 4. Continue bronchodilators. 5. Continue diuresis with Lasix IV b.i.d. 6. Metastatic hepatocellular cancer stage IV. 7. Code status. The patient is a DNR level 1. Dictated by ANA ROSA Shi for Vishnu Cleaning MD cc: ANA ROSA Shi MD [facility]
--- NOTE | 2019-09-10 19:25 | NEPHROLOGY CONSULTATION ---
DATE: 09/10/2019 REASON FOR CONSULTATION: Hyponatremia. HISTORY OF PRESENT ILLNESS: Mr. Espino is a 69-year-old white male, that we mad at his most recent hospitalization. He had significant hyponatremia and oliguric acute kidney injury. These problems were recognized in the context of his recent treatment for liver metastases secondary to primary lung cancer. Our initial note indicates that at the time he was dealing with confusion, restlessness and abdominal distention. At the time, his creatinine was 4.1, BUN 56 and sodium 118. We treated him during that hospitalization using normal saline and his sodium improved from 118 progressively to 128 at the time of discharge. His urine sodium was low at the time and urine osmolarity was 290 which is moderately elevated. He was discharged at his request on the , at which time his sodium was 128. He returned to the hospital on the with a complaint of worsening abdominal distention. This had been developing since discharge from the hospital and even prior to discharge. What ultimately prompted him to come back to the hospital was worsening dyspnea that was associated with his abdominal distention. No chills, fevers, etc. PAST MEDICAL HISTORY: Hepatocellular carcinoma stage IV with metastatic disease including the lungs. Significant inferior vena cava thrombosis and portal vein thrombosis. He also has hypertension, hyperlipidemia, hemochromatosis. FAMILY HISTORY: He is and lives with his who is his primary caregiver. Former smoker. FAMILY HISTORY: Noncontributory. REVIEW OF SYSTEMS: Noncontributory. PHYSICAL EXAMINATION: Vital Signs: Blood pressure 124/79, heart rate 106, respirations 17, afebrile. Intake 480 mL, output 700 mL. General: Chronically-ill man in no acute distress. He has muscle wasting in the face, arms, thighs etc. Skin is pale with some jaundice. Conjunctivae are pink. Pupils are equal. Oropharynx is clear. Neck: Neck vein distention is not appreciated. Heart: Regular. No gallops or murmurs. Lungs: Equal. No crackles or wheezes. Abdomen: Distended, soft. Bowel sounds are present. Nontender. Extremities: With 1+ edema. No clubbing or cyanosis. IMPRESSION: Hyponatremia and acute kidney injury. Our experience during his last hospitalization was that his hyponatremia responded to normal saline volume resuscitation. Again in today's case, his urine sodium is markedly low. His volume status is difficult to read because of his central vein thromboses. Furthermore, ascites and peripheral edema are more prominent because of these thromboses. As such, I believe normal saline is the most appropriate short-term treatment for his hyponatremia. Albumin is appropriate as is therapeutic paracentesis. He has received albumin and paracentesis is planned for tomorrow. I have reviewed his medications. No other changes are required at this time. We will follow with you. cc: Noman Wright MD
--- NOTE | 2019-09-10 19:48 | PROGRESS NOTE ---
DATE: 09/10/2019 SUBJECTIVE: The patient has no major complaints. His abdomen is definitely much more swollen though. OBJECTIVE: Blood pressure is 109/78, heart rate of 101, respiratory rate of 14, temp was 98.2 degrees.Cardiovascular: Regular rate and rhythm. Pulmonary: Bilateral breath sounds. Clear to auscultation. GI: Was soft but more distended today. LABORATORIES: White count 8, hemoglobin and hematocrit 16 and 49, platelets of 108,000. Sodium has dropped to 118, but his urine sodium is low. His urine osmolarity is high. It is not consistent with SIADH, but is more consistent with just volume loss. ASSESSMENT: 1. Large pleural effusion. We are going to pursue thoracentesis before we do PleurX. So, we will plan to do that tomorrow. 2. Hyponatremia, which has not responded to fluids or fluid restriction. I am a little concerned about starting Samsca just because I am afraid he will overcorrect, but nephrology has been gracious enough to see him and they are recommending normal saline. So, we are going to give him normal saline, which I think is reasonable. We gave more normal saline earlier today and his sodium did not budge. It went from 118 to 118, but we are going to hold any more diuretic. Again, if it is malignant, the diuretics are probably not going to do too much in that setting. 3. Inferior vena cava thrombus. We are holding anticoagulation for the time. Because again, we need to do this centesis. So, we will do a large volume part paracentesis tomorrow. We will do a thoracentesis tomorrow. 4. Possible pneumonia. I guess he is empirically on antibiotics. 5. Metastatic liver cancer, stage IV. Prognosis is poor. I think palliative care consult is a very appropriate course. That will not happen till tomorrow, so we will continue to follow. He is a DNR. I think at this point, even the measures we are trying to do with the centeses will help with dyspnea sensation and abdominal pain and swelling. cc: Cecilio Mesa MD
[2019-09-10] MEDS: REMERON PO SCH (22:33)
[2019-09-10] MEDS: RESTORIL PO PRN (22:34)
[2019-09-10] MEDS: NS 1,000 ML IV SCH (22:35)
[2019-09-11] MEDS: DUONEB (A & A) INH SCH ×5 (03:42→19:30)
[2019-09-11] MEDS: NS 1,000 ML IV SCH (05:05)
--- NOTE | 2019-09-11 06:37 | GENERAL SURGERY PROGRESS NOTE ---
DATE: 09/11/2019 SUBJECTIVE: The patient seems to be doing a little bit better. OBJECTIVE: Vital Signs: The patient is currently afebrile. His vital signs are stable. General Examination: No acute distress. Cardiovascular: Regular rate and rhythm. Lungs: Some decreased breath sounds on the right. Abdomen: Distended and grossly unchanged. ASSESSMENT AND PLAN: A 70-year-old with pleural effusion and tense ascites. 1. Pleural effusion. At this time, hopefully, he can get a thoracentesis today along with his paracentesis. 2. Abdominal ascites. At this time, I think he is scheduled for a paracentesis. 3. Hyponatremia. Most recent was a sodium of 118. This is likely a chronic issue, given the fact that he is at least talking to us at the moment. I will defer continued resuscitation and correction of that to the hospitalist and nephrology. cc: Damon Pichardo MD
[2019-09-11 07:07] LABS: BASO# 0.02 X1000 (0.0-0.2); BASO% 0.2 % (0.0-0.8); EOS# 0.04 X1000 (0.0-0.7); EOS% 0.5 % (0.0-10.0); HEMATOCRIT 49.6 % (42.0-52.0); HEMOGLOBIN 16.6 g/dL (14.0-18.0); IMM GRAN# 0.08 X1000 (0.0-0.04); IMM GRAN% 0.9 % (0.0-0.5); LYMPH# 0.85 X1000 (1.2-3.4); LYMPH% 9.6 % (20.5-51.1); MCH 30.4 PG (27-31); MCHC 33.5 g/dL (33-37); MCV 90.8 FL (81-99); MONO# 1.26 X1000 (0.11-0.59); MONO% 14.2 % (1.7-9.3); MPV 9.8 FL (7.4-10.4); NEUT% 74.6 % (42.2-75.2); PLT 103 X1000 (130-400); RBC 5.46 XMIL (4.7-6.1); RDW 14.9 % (11.5-14.5); WBC 8.85 X1000 (4.8-10.8)
[2019-09-11 07:39] LABS: ALB/GLOB RATIO 0.8; ALBUMIN 2.8 g/dL (3.5-5.0); CALCIUM 7.4 mg/dL (8.8-10.2); CREATININE 1.5 mg/dL (0.7-1.2); DIRECT BILIRUBIN 0.4 mg/dL (0.00-0.20); PHOSPHORUS 3.6 mg/dL (2.7-4.5); POTASSIUM 4.1 mmol/L (3.5-5.1); TOTAL BILIRUBIN 1.25 mg/dL (0.20-1.00); TOTAL PROTEIN 6.3 g/dL (6.3-8.3)
[2019-09-11] MEDS: MAXIPIME 1 GM in NS 50 ML IV SCH ×2 (08:46→21:41)
[2019-09-11] MEDS: FLOMAX PO SCH (08:47)
[2019-09-11] MEDS: FOLIC ACID PO SCH (08:47)
[2019-09-11] MEDS: LACTULOSE PO SCH (08:47)
--- NOTE | 2019-09-11 11:53 | NEPHROLOGY PROGRESS NOTE ---
DATE: 09/11/2019 SUBJECTIVE: He is complaining of shortness of breath and attributes it to abdominal distention. No nausea or vomiting. OBJECTIVE: Vital Signs: Blood pressure 124/80, heart rate 96, respirations 16, afebrile. General: Chronically ill, no change. Skin: Warm and dry. Neck: Neck veins are not appreciated. Heart: Regular. Lungs: Equal. No crackles. The patient is lying at 30 degrees. Abdomen: Distended, bowel sounds are present. Extremities: 3+ edema. No clubbing or cyanosis. IMPRESSION: Hyponatremia. Prerenal azotemia with BUN 44, creatinine 1.5. Sodium today 121. Given his marked volume overload, I will stop his IV fluids today. I would recommend free water restriction, and I will discontinue lab monitoring of his sodium. I discussed this directly with Dr. Reddy who will have another conversation with the patient and family. I have no other recommendations at this time. cc: Noman Wright MD
[2019-09-11] MEDS ORDERED: ALBUMIN 25% IV ONE (17:53)
--- NOTE | 2019-09-11 18:36 | PROGRESS NOTE ---
DATE: 09/11/2019 SUBJECTIVE: Blood pressure 108/76, heart rate 103, respiratory rate 22, temperature 97.7 degrees. Cardiovascular: Regular rate and rhythm. Pulmonary: Bilateral breath sounds clear to auscultation. GI: Was soft, nontender, nondistended. Bowel sounds are positive. LABORATORY DATA: White count 8.8, hemoglobin and hematocrit 16, 49, platelets of 103,000. Sodium 121, creatinine 1.5. 1. I guess per neurology's recommendation we are going to stop checking sodiums, free water restriction and Dr. Reddy is going to discuss with the family I guess about poor prognosis maybe, he is already a DNR level 1. It looks like they are considering hospice at home which again I would probably really consider doing a PleurX but that is the discretion of surgery. We have done a paracentesis today, got about 5 L of fluid off so he seems to be feeling better from that standpoint and tomorrow we will work on trying to get the rest of the fluid off but will do thoracentesis. 2. Metastatic liver cancer at least presumably metastatic. He has got severe, severe, severe lymphedema anasarca. Prognosis is poor. Palliative consult is in process. He is a DNR. Dr. Reddy will discuss with him further. 3. Pleural effusion again aware, we are going to try to do the testing tomorrow and see how he does. cc: Cecilio Mesa MD
[2019-09-11 19:20] LABS: ALBUMIN BODY FLUID 1.1 g/dL; AMYLASE BODY FLUID 25 U/L; TOTAL PROT BODY FLUID 2.3 g/dL
[2019-09-11 19:38] LABS: BODY FLUID SOURCE PERITONEAL FLUID; WBC BF 108 /cumm
[2019-09-11 20:00] LABS: MONOS 94 %; POLYS 6 %
[2019-09-11] MEDS: NORCO-7.5 PO PRN (21:40)
[2019-09-11] MEDS: REMERON PO SCH (21:41)
[2019-09-11] MEDS: RESTORIL PO PRN (21:41)
--- NOTE | 2019-09-11 22:44 | PULMONOLOGY PROGRESS NOTE ---
DATE: 09/11/2019 SUBJECTIVE: The patient is awake and alert. He is without specific complaints at this time. He had a large volume paracentesis earlier today, but he said he is not sure that it helped. A thoracentesis has been scheduled for tomorrow. OBJECTIVE: General: Thin white male with significant pallor, but in no distress. Vital signs: Blood pressure 101/71, heart rate 101, respiratory rate is 18, oxygen saturation 98%. HEENT: Pupils are equal and reactive. Oropharynx appears clear. Neck: Supple. Chest: Diminished breath sounds right base. Cardiac exam: S1-S2. Abdomen: Soft. Extremities: Generalized edema. LABORATORIES: Sodium 129, potassium 4.1, chloride 83, bicarbonate 23, BUN 44, creatinine 1.5. IMPRESSION: A 69-year-old with: 1. Right-sided pleural effusion. 2. Ascites. 3. New stage IV hepatocellular carcinoma. PLAN: 1. Palliative thoracentesis tomorrow. 2. End of life discussions noted as per Dr. Mesa. 3. Overall prognosis appears poor. cc: Vishnu Cleaning MD
[2019-09-12] MEDS: DUONEB (A & A) INH SCH ×3 (03:09→17:10)
--- NOTE | 2019-09-12 06:35 | GENERAL SURGERY PROGRESS NOTE ---
DATE: 09/12/2019 SUBJECTIVE: The patient did have some fluid drained off from a paracentesis, but he did not have a thoracentesis. He says he is feeling a little bit better. OBJECTIVE: Vital Signs: The patient is currently afebrile. His vital signs are stable. General: No acute distress. Cardiovascular: Regular rate and rhythm. Lungs: Still with some decreased breath sounds on the right. Abdomen: The abdomen is less distended. ASSESSMENT AND PLAN: A 70-year-old gentleman with pleural effusion and intense ascites. 1. Pleural effusion: At this time, hopefully we can get a thoracentesis today. 2. Abdominal ascites: At this time, he has already had a paracentesis with some improvement. 3. Hyponatremia: Yesterday it was 121. We will defer to the hospitalist. 4. We will continue to follow. cc: Damon Pichardo MD
--- NOTE | 2019-09-12 06:54 | Extremity Venous Study ---
PROCEDURE NAME: Venous U/S Bilateral Legs - 09/10/2019 REQUESTING PHYSICIAN: Dr. Mesa. VIOLIN TUTOR: Lanie. INDICATIONS: Swelling. EQUIPMENT: [employer] Vivid E9 ultrasound system with a 9 L-D transducer. FINDINGS: Images of the bilateral lower extremity venous systems were obtained in both sagittal and transverse planes. Doppler was used to evaluate veins for spontaneity, phasicity, respiratory excursion, and digital augmentation. RESULTS: Normal venous compression, normal venous flow. No obvious superficial or deep venous thrombosis noted. INTERPRETATION: Essentially normal bilateral lower extremity venous study. cc: MD Cecilio Hernández MD
--- NOTE | 2019-09-12 09:06 | Diag Imaging Result Doc PS360 ---
EXAM: CHEST-2 VIEWS INDICATION: POST RIGHT THORA TECHNIQUE: 2 views COMPARISON: 09/08/2019 FINDINGS: There has been interval significant improvement of the right pleural effusion status post thoracentesis. There is no evidence of postprocedural pneumothorax. There is residual atelectasis at the right lung base that has improved. No new consolidation is identified. Cardiac silhouette is stable. IMPRESSION: No evidence of pneumothorax status post right thoracentesis. Electronically signed by Jared Rios 09/12/2019 9:03 AM
--- NOTE | 2019-09-12 09:10 | Diag Imaging Result Doc PS360 ---
EXAM: US THORACENTESIS W/IMAGE GUIDE INDICATION: pleural effusion TECHNIQUE: COMPARISON: None. FINDINGS: Risks, benefits, and alternatives were discussed with the patient and informed consent was obtained. The patient was prepped and draped in sterile fashion and local anesthesia with achieved with 1% lidocaine solution. Using ultrasound guidance, a large bore catheter was inserted into the right pleural space and approximately 1400 mL of dark candy serous fluid was aspirated. There were no known complications. A postprocedural chest radiograph showed no pneumothorax. IMPRESSION: Technically successful ultrasound-guided right thoracentesis. Electronically signed by Jared Rios 09/12/2019 9:08 AM
[2019-09-12] MEDS: FLOMAX PO SCH (09:46)
[2019-09-12] MEDS: FOLIC ACID PO SCH (09:46)
[2019-09-12] MEDS: LACTULOSE PO SCH (09:46)
[2019-09-12] MEDS: MAXIPIME 1 GM in NS 50 ML IV SCH (09:46)
[2019-09-12 15:40] LABS: AMYLASE BODY FLUID 28 U/L; GLUCOSE BODY FLUID 99 mg/dL; LDH BODY FLUID 161 U/L
[2019-09-12 15:58] LABS: BODY FLUID SOURCE PLEURAL FLUID; SPECIMEN PLEURAL FLUID
[2019-09-12 15:59] LABS: MONOS 74 %; PH BODY FLUID 7.5; POLYS 26 %; WBC BF 176 /cumm
--- NOTE | 2019-09-12 16:06 | HEMO/ONC PROGRESS NOTE ---
DATE: 09/12/2019 We did go see Mr. Espino today. He is status post thoracentesis, which he seems to have tolerated well. We discussed hospice with the patient. The palliative care nurse has previously discussed with the patient's , hospice, which the is agreeable if the patient wants to proceed. The patient did indicate to us that he would like to go home on hospice. We will go ahead and get that set up. Dr. Reddy will contact the patient's to update her and to discuss further. While he is in the hospital, we will continue to follow along. Dictated by RUSSELL Riggins for Oksana Reddy MD cc: Oksana Reddy MD
--- NOTE | 2019-09-12 16:25 | HEMO/ONC CONSULTATION ---
DATE: 09/11/2019 REQUESTING PHYSICIAN: Hospitalist Service. REASON FOR CONSULTATION: Patient known. HISTORY OF PRESENT ILLNESS: Mr. Espino is a 69-year-old male who is known to us as we are currently treating him for hepatocellular carcinoma. He actually was just recently in the hospital and has now returned. He presented with shortness of breath that was progressively worsening. He has now been admitted. Workup has revealed both pleural effusions and ascites. In general, the patient has had a decline in performance status. He has received 3 cycles of Tecentriq and Avastin as an outpatient. Unfortunately, he has not been able to get additional cycles due to his hospitalizations and decline in performance status. His last treatment was August 17, 2019. The patient overall is doing okay at this time. He is complaining of bilateral lower extremity edema and swelling. PAST MEDICAL HISTORY: 1. Metastatic hepatocellular carcinoma. Most recently received Tecentriq and Avastin. He has previously received Lenvima. 2. Hypertension. 3. Hyperlipidemia. 4. Hemochromatosis. 5. Portal vein thrombus, anticoagulants currently on hold due to possibility for needing a thoracentesis/paracentesis. 6. Borderline diabetic. PAST SURGICAL HISTORY: He has had surgery to his back previously. SOCIAL HISTORY: He lives with his , who happens to be at bedside. He is a previous smoker but quit smoking back in 1997. He occasionally drinks a beer, but denies any illicit drug use. FAMILY HISTORY: Positive for MT, lung cancer, COPD, and postop blood clot. REVIEW OF SYSTEMS: Twelve point review of systems has been completed. It is negative except for as expressed in HPI. PHYSICAL EXAMINATION: Vital Signs: Temperature is 97.3 degrees, heart rate 105, respirations 20, blood pressure 113/85, O2 saturation 96% on room air. General: This is a chronically ill- appearing male who has his at bedside. He has muscle wasting and is cachetic. Head: Normocephalic, atraumatic. Eyes: Pupils equal, round, reactive. Ears, nose, throat, neck, and mouth: Mucosa appears to be slightly dry. Cardiovascular: Tachycardia noted. Respiratory: Normal respiratory effort. Gastrointestinal: Abdomen is distended with ascites. Musculoskeletal: No obvious bony abnormalities. Extremities: He has 3+ bilateral pretibial edema that extends all the way up both of his legs. It is weeping. Neurologic: Patient is alert and oriented. He has no focal motor deficits that are obvious at this time. LABS AND STUDIES: White blood cells were 8.85, hemoglobin 16.6, platelet count 103,000. Sodium 121, potassium 4.1, chloride 83, CO2 23, BUN 44, creatinine 1.5, glucose 104. ASSESSMENT AND PLAN: 1. Metastatic hepatocellular carcinoma. Patient has advanced disease. He has poor performance status. He is not in a state in which he could get any further treatment. I briefly discussed this with the patient and his today. Discussed the possibility that we may need to transition our focus and also discuss goals of care. We will follow up tomorrow. 2. Pleural effusion and ascites. They are planning possibly to do a thoracentesis and a paracentesis as tolerated. Agree for palliative measures. 3. Right lower lobe pneumonia. Treating with antibiotics per the Primary Team. 4. Hyponatremia. Both Nephrology and the Primary Team are working on the patient's sodium levels. 5. Bilateral lower extremity edema/anasarca. Continue management per the Primary Team and Nephrology. Did discuss with the patient and his though that these are signs of end- stage disease and they verbalized understanding. Dictated by RUSSELL Riggins for Klaus Omalley MD cc: Klaus Omalley MD
[2019-09-12 17:42] VITALS: BP 81/56
--- NOTE | 2019-09-12 17:46 | NEPHROLOGY PROGRESS NOTE ---
DATE: 09/12/2019 SUBJECTIVE: The patient states he feels better after paracentesis, but he is still short of breath. Otherwise, no changes. OBJECTIVE: Vital Signs: Blood pressure 87/61, heart rate 102 respirations 20, and afebrile. IMPRESSION: Hyponatremia and renal failure. No good treatment options exist. I recommend transition to comfort management. Dr. Reddy has spoken with the family. They will transition to hospice. We will sign off. cc: Noman Wright MD
--- NOTE | 2019-09-12 18:04 | DISCHARGE SUMMARY ---
ADMISSION DATE: 09/08/2019 DISCHARGE DATE: 09/12/2019 DISCHARGE DIAGNOSES: 1. Stage IV hepatic cancer. 2. Hyponatremia due to dehydration, anasarca associated with hepatic liver failure, hepatic injury. 3. Large pleural effusion, likely third space. 4. Large ascites. PROCEDURES: 1. Thoracentesis. 2. Paracentesis. CONSULTATIONS: Dr. Cleaning and Dr. Wright, Nephrology, and Dr. Pedro, Hematology/Oncology. HOSPITAL COURSE: Briefly, this is a 69-year-old male with metastatic hepatocellular carcinoma stage IV, who presented with shortness of breath. He was found to have a large pleural effusion, renal insufficiency, elevated liver enzymes. He also had ascites on exam. Also a history of hematochromatosis and portal vein thrombosis. The patient was admitted for treatment. It was thought possibly that this was a pneumonia. He was empirically placed on antibiotics. He was hyponatremic and placed on fluids. We held his Eliquis for about 48 hours before instrumentation. Chest CT confirmed a large pleural effusion, innumerable pulmonary metastases which had increased since previous, which was on the 12 of June, large volume ascites, large right hepatic lobe mass, increasing celiac lymphadenopathy; that is despite treatment. Extremity ultrasound was negative. Surgery was consulted to consider placing a PleurX. Nephrology was consulted because he had worsening hyponatremia. He was placed on IV fluids and did improve somewhat. We ended up doing a paracentesis on the which we took about 5.2 L off. He underwent ultrasound-guided right thoracentesis on the , prior to discharge, and patient was felt stable for discharge. Peritoneal fluid was no growth. Gram stain on the pleural fluid was negative. The patient was felt stable for discharge. After discussion with Dr. Reddy, she recommended that he was poor prognosis and that they would pursue home with hospice. I think Dr. Reddy evaluated that and recommended that. I am going to resume his medications. He is on anticoagulants which we can probably safely resume by tomorrow. We are setting up hospice and hopefully will be discharged today, on the . DISCHARGE MEDICATIONS: Folic acid 1 daily, [place] as needed, lactulose 30 daily, Flomax 0.4 daily, Nexium 40 daily, Eliquis 5 b.i.d., Compazine p.r.n., Remeron 15 at bedtime. I am going to give him Lasix 40 as needed for blood pressure, just because I think his swelling is most likely going to cause some issue. We will see how he does. cc: Cecilio Mesa MD
[2019-09-12] MEDS: NORCO-7.5 PO PRN (18:35)
--- NOTE | 2019-09-12 19:43 | PULMONOLOGY PROGRESS NOTE ---
DATE: 09/12/2019 SUBJECTIVE: The patient is awake and alert. He had pleural fluid removed earlier today. He reports his shortness of breath has diminished. OBJECTIVE: BP 84/65, heart rate 99, respiratory rate 16, oxygen saturation 97%. HEENT: Pupils are equal and reactive. Oropharynx appears clear. Neck is supple. Chest reveals diminished breath sounds, right base. Cardiac exam: S1, S2. Abdomen is soft. Extremities without edema. IMPRESSION: A 69-year-old with: 1. Pleural effusion. 2. Ascites. 3. Stage IV hepatocellular carcinoma. PLAN: Anticipate discharge home with hospice, with comfort measures. cc: Vishnu Cleaning MD
--- NOTE | 2019-09-28 17:30 | OPERATIVE NOTE ---
DATE OF CONSULTATION: 09/11/2019 PARACENTESIS NOTE: DISCHARGE DIAGNOSIS: Abnormal ascites. Briefly, this is a 69-year-old male who has large volume ascites. He underwent treatment. After ultrasound demarcation he underwent procedure. Local anesthetic. This was on the . He was cleaned with chlorhexidine. Catheter was passed with removal of kind of denise colored clear fluid. Catheter was placed and we had a total of about at least a little over 5 L fluid removed without complication. Sample sent for analysis. Again, procedure was completed on the . cc: Cecilio Mesa MD
== END 2019-09-12 18:46 | disposition hospice, home (50) | DRG 435 ==
LOC: SUPCPDRO → ED 13:11 → EDIPHOLD 16:58 → 3N 20:08
PROVIDERS: ATTEND Internal Medicine